=== PATIENT | female | born 1990 | race Caucasian/White ===

== ENCOUNTER 2021-06-28 08:00 | Emergency (ER) | payer OTHER, SELFPAY ==
--- NOTE | ~2021-06-28 | XR_ITS ---
EXAMINATION: XR CHEST CLINICAL INFORMATION: Chest pain COMPARISON: None TECHNIQUE: Frontal view of the chest was obtained. FINDINGS: No significant abnormality is noted involving the heart, lungs, mediastinum, bony thorax or soft tissues. XR/XR chest 1V IMPRESSION: Unremarkable chest examination.
[2021-06-28 08:11] VITALS: BP 131/91; PULSE 76; RESP 16; O2SAT 100; BMI 38.9
--- NOTE | 2021-06-28 08:25 | ECG_ITS ---
Test Reason : CHEST PAIN Blood Pressure : / mmHG Vent. Rate : 074 BPM Atrial Rate : 074 BPM P-R Int : 130 ms QRS Dur : 078 ms QT Int : 400 ms P-R-T Axes : 042 017 007 degrees QTc Int : 444 ms Normal sinus rhythm with sinus arrhythmia Normal ECG No previous ECGs available Referred By: Stacy Luevano Electronically Signed By:JENNIFER ZHAO MD
--- NOTE | 2021-06-28 08:46 | ED.CHESTPAIN ---
HPI - Chest Pain General Chief Complaint: Chest Pain Stated Complaint: CHEST PAIN ARM PAIN Time Seen by Provider: 06/28/21 08:19 Source: patient Mode of arrival: ambulatory History of Present Illness HPI narrative: 30-year-old female with past medical history of anxiety presenting to the ED complaining of sudden onset substernal chest pressure radiating to LUE starting at 6am while driving to [place]. Admits to associated left arm tingling and SOB during incident. Admits symptoms felt similar to prior anxiety attacks however radiation down arm was different. Denies fever, chills, cough, LE edema, calf pain, cigarette smoking, history blood clots, recent travel, nausea MD complaint: chest pain and chest discomfort Related Data Allergies Allergy/AdvReac Type Severity Reaction Status Date / Time doxycycline [DOXYCYCLINE] Allergy Unknown HIVES Unverified 04/18/20 18:00 Review of Systems Review of Systems: Constitutional: No Fever, No Fatigue, No Malaise ENT/Mouth: No Ear Pain, No sore throat, No Rhinorrhea Eyes: No Eye Pain, No Vision Changes Cardiovascular: + Chest Pain, + SOB, No Edema, No Palpitations Respiratory: No Cough, No Sputum, No Wheezing, No Dyspnea Gastrointestinal: No Nausea, No Vomiting, No Abdominal pain Genitourinary: No Dysuria, No Urinary Frequency, No Hematuria,No Flank Pain Musculoskeletal: No joint pain, No Myalgias, No Joint Swelling Skin: No Skin Lesions, No rash Neuro: No Weakness, No Headache Yes all other systems are reviewed and are negative PMFSH Past Medical History Attestation statement: The following information was validated with the patient. Medical History Anxiety Social History Social History Advance Directives: No Advance Directives Information Provided: No Patient : No Physical Exam Vital Signs: Vital Signs: Last Vital Signs Temp 97.4 F 06/28/21 12:02 Pulse 72 06/28/21 12:02 Resp 18 06/28/21 12:02 BP 128/80 06/28/21 12:02 Pulse Ox 99 06/28/21 12:02 Body Mass Index 38.9 Const: General: cooperative, healthy appearing and no acute distress Orientation/consciousness: patient oriented x3 Limitations: no limitations HENMT: Head: Yes normal to inspection Ears: hearing grossly normal bilaterally General nose exam: Normal external nose present Face and sinus: Yes normal facial exam Eyes: General: appearance normal, both eyes and all related structures EOM: EOMs intact bilaterally Neck: Neck: Yes normal visual inspection and Yes no meningeal signs Resp: Effort & Inspection: normal respiratory effort Auscultation: clear to auscultation bilaterally, no rales, no rhonchi and no wheezes Cardio: Rate: regular rate Heart sounds: S1 normal heart sound present and S2 normal heart sound present GI: Inspection: Yes normal to inspection Palpation (GI): Soft to palpation, nontender, no guarding and not rigid Skin: Rashes: no rashes Wounds: no wounds Neuro: General: patient oriented x3 and no meningeal signs Gait exam (Neuro): Normal gait present Extrem: General: Yes normal to inspection, Yes no pedal edema and Yes no calf tenderness Course Course Course Narrative: - labs unremarkable, initial troponin negative XR chest 1V IMPRESSION: Unremarkable chest examination. -1242--repeat troponin equivocal, DE unlikely, results discussed with patient including worrisome signs and symptoms and strict return precautions and you to follow-up with PCP/Cardiology as needed. Patient verbalized understanding feel safe for discharge home at this time MDM - Chest Pain MDM Narrative Medical decision making narrative: 30-year-old female with past medical history of anxiety presenting to the ED complaining of sudden onset substernal chest pressure radiating to LUE starting at 6am while driving to [place]. On exam vital signs stable, NAD/well-appearing, pain not reproducible, lungs CTA, no pedal edema/calf tenderness. Concern for ACS versus anxiety. Low concern for PE/pneumonia or viral syndrome/COVID-19 Plan: Labs, CXR, troponin x2 Medical Records Data Attestation: I reviewed the patient's medical records. Lab Data Attestation: I reviewed the patient's lab results. Result diagrams: 06/28/21 08:53 06/28/21 08:53 Labs: Lab Results 06/28/21 06/28/21 06/28/21 Range/Units 08:53 08:53 08:53 WBC 9.2 (4.8-10.8) X10*3/uL RBC 4.29 (4.20-5.50) X10*6/uL Hgb 12.6 (12.0-16.0) g/dl Hct 37.0 (37.0-47.0) % MCV 86.2 (80.0-98.0) fL MCH 29.4 (27.0-33.0) pg MCHC 34.1 (31.0-35.0) g/dl RDW 12.3 (11.0-16.0) % Plt Count 304 (160-400) X10*3/uL MPV 9.7 (9.4-12.3) fL Immature Gran % (Auto) 0.2 (0.0-0.4) % Neut % (Auto) 65.7 (45-73) % Lymph % (Auto) 21.5 (20-40) % [place] % (Auto) 5.6 (2-11) % Eos % (Auto) 6.3 H (0-4) % Baso % (Auto) 0.7 (0-2) % Lymph # (Auto) 2.0 (1.2-4.9) X10*3/uL [place] # (Auto) 0.5 (0.1-1.2) X10*3/uL Eos # (Auto) 0.6 H (0.0-0.4) X10*3/uL Baso # (Auto) 0.1 (0.0-0.2) X10*3/uL Abs Immat Gran (auto) 0.02 (0.00-0.03) X10*3/uL Absolute Neuts (auto) 6.0 (2.0-8.3) x10*3/uL Absolute Nucleated RBC 0.000 (0.0-0.012) X10*3/uL Nucleated RBC % (auto) 0.0 (0.0-0.2) /100WBC Sodium 141 (135-145) mmol/L Potassium 4.6 (3.3-5.1) mmol/L Chloride 108 (96-108) mmol/L Carbon Dioxide 25 (22-29) mmol/L Anion Gap 13 (12-20) BUN 10 (9-16) mg/dL Creatinine 0.80 (0.5-1.4) mg/dL Estim Creat Clear Calc 115.8 Estimated GFR > 60 Random Glucose 106 (60-115) mg/dL Calcium 9.3 (8.4-10.2) mg/dL Troponin I High Sens < 3.5 (<3.5-17.0) ng/L 06/28/21 Range/Units 11:55 WBC (4.8-10.8) X10*3/uL RBC (4.20-5.50) X10*6/uL Hgb (12.0-16.0) g/dl Hct (37.0-47.0) % MCV (80.0-98.0) fL MCH (27.0-33.0) pg MCHC (31.0-35.0) g/dl RDW (11.0-16.0) % Plt Count (160-400) X10*3/uL MPV (9.4-12.3) fL Immature Gran % (Auto) (0.0-0.4) % Neut % (Auto) (45-73) % Lymph % (Auto) (20-40) % [place] % (Auto) (2-11) % Eos % (Auto) (0-4) % Baso % (Auto) (0-2) % Lymph # (Auto) (1.2-4.9) X10*3/uL [place] # (Auto) (0.1-1.2) X10*3/uL Eos # (Auto) (0.0-0.4) X10*3/uL Baso # (Auto) (0.0-0.2) X10*3/uL Abs Immat Gran (auto) (0.00-0.03) X10*3/uL Absolute Neuts (auto) (2.0-8.3) x10*3/uL Absolute Nucleated RBC (0.0-0.012) X10*3/uL Nucleated RBC % (auto) (0.0-0.2) /100WBC Sodium (135-145) mmol/L Potassium (3.3-5.1) mmol/L Chloride (96-108) mmol/L Carbon Dioxide (22-29) mmol/L Anion Gap (12-20) BUN (9-16) mg/dL Creatinine (0.5-1.4) mg/dL Estim Creat Clear Calc Estimated GFR Random Glucose (60-115) mg/dL Calcium (8.4-10.2) mg/dL Troponin I High Sens < 3.5 (<3.5-17.0) ng/L ECG Data ECG #1: Attestation: I personally reviewed and interpreted this ECG as follows: ECG interpretation date: 06/28/21 ECG interpretation time: 08:24 Prior ECG tracings: not available for review Interpretation: EKG NSR rate 74, MN interval 130m QTC 444, No STEMI Discharge Plan Discharge Clinical Impression: Chest pain Qualifiers: Chest pain type: unspecified Qualified Code(s): R07.9 - Chest pain, unspecified Patient Disposition: Home, Self-Care Instructions: Chest Pain (ED) Additional Instructions: Your blood work was reassuring today in the emergency department Her chest x-ray was unremarkable Please follow-up with her primary care doctor Please follow up with Cardiology as needed If her symptoms persist or worsen, chest pain becomes more constant/unbearable your of shortness of breath, fever or chills he is return to the emergency department Referrals: Fernando Huynh MD [Primary Care Provider] - 2 days Boo Emmanuel MD [Physician] - 1 week (As needed)
[2021-06-28 08:58] LABS: Basophils Absolute Auto 0.1 X10*3/uL (0.0-0.2); Basophils Percent Auto 0.7 % (0-2); Eosinophils Absolute Auto 0.6 X10*3/uL (0.0-0.4); Eosinophils Percent Auto 6.3 % (0-4); Hemoglobin 12.6 g/dl (12.0-16.0); Imm Gran Abs Auto 0.02 X10*3/uL (0.00-0.03); Imm Gran Pct Auto 0.2 % (0.0-0.4); Lymphocytes Percent Auto 21.5 % (20-40); MANUAL DIFF FLAG NO; Mean Corpuscular HGB Conc 34.1 g/dl (31.0-35.0); Mean Corpuscular Hemoglobin 29.4 pg (27.0-33.0); Mean Corpuscular Volume 86.2 fL (80.0-98.0); Mean Platelet Volume 9.7 fL (9.4-12.3); Monocytes Absolute Auto 0.5 X10*3/uL (0.1-1.2); Monocytes Percent Auto 5.6 % (2-11); Neutrophils Percent Auto 65.7 % (45-73); Platelet Count 304 X10*3/uL (160-400); Red Blood Count 4.29 X10*6/uL (4.20-5.50); Red Cell Distribution Width 12.3 % (11.0-16.0); White Blood Count 9.2 X10*3/uL (4.8-10.8)
[2021-06-28 09:13] LABS: Anion Gap 13 (12-20); Blood Urea Nitrogen 10 mg/dL (9-16); Calcium 9.3 mg/dL (8.4-10.2); Carbon Dioxide 25 mmol/L (22-29); Chloride 108 mmol/L (96-108); Creatinine Clr Calc Pharmacy 115.8; Estimated Glomerular Filt Rate > 60; Glucose Random 106 mg/dL (60-115); Potassium 4.6 mmol/L (3.3-5.1); Sodium 141 mmol/L (135-145)
[2021-06-28 09:16] LABS: Troponin-I High Sensitivity < 3.5 ng/L (<3.5-17.0)
[2021-06-28 12:02] VITALS: BP 128/80; PULSE 72; RESP 18; TEMP 36.3; O2SAT 99
[2021-06-28 12:26] LABS: Troponin-I High Sensitivity < 3.5 ng/L (<3.5-17.0)
== END 2021-06-28 12:54 | disposition home or self-care (01) ==
PROVIDERS: Physician Assistant; Emergency Provider Emergency Medicine; PCP Family Medicine
DX: R07.9 Chest pain, unspecified (principal); F41.9 Anxiety disorder, unspecified
CPT/HCPCS: 36415; 71045; 80048; 84484; 85025; 93005; 99283; 99284

== ENCOUNTER 2022-06-25 23:14 | Emergency (ER) | payer OTHER, SELFPAY ==
[2022-06-25 23:15] VITALS: BP 138/88; PULSE 86; RESP 18; TEMP 36.8; O2SAT 99; BMI 40.8
[2022-06-25 23:30] VITALS: BP 137/80; PULSE 93; RESP 18; TEMP 37.2; O2SAT 98
--- OUTSIDE RECORDS SUMMARY | 2022-06-25 23:44 | XMS_ITS ---
:1990 Demographics Preferred Language Unknown Marital Status Unknown Protestant Affiliation Unknown Race Unknown Ethnic Group Unknown Author Organization [facility] Address [address] [place] [address] Care Team Providers Name Role Phone Ryan Victoria Unavailable Unavailable PROBLEMS Unknown Problems ALLERGIES No Information ENCOUNTERS Encounter Location Date Diagnosis Ryan Victoria MD, [address] [facility] [address] Oct, [place] [address] IMMUNIZATIONS No Known Immunizations SOCIAL HISTORY Never Assessed REASON FOR REFERRAL FUNCTIONAL STATUS PLAN OF CARE VITAL SIGNS MEDICATIONS Unknown Medications PROCEDURES No Known procedures RESULTS No Results REASON FOR VISIT
--- NOTE | 2022-06-25 23:49 | ECG_ITS ---
Test Reason : HEART PALP Blood Pressure : / mmHG Vent. Rate : 097 BPM Atrial Rate : 097 BPM P-R Int : 134 ms QRS Dur : 084 ms QT Int : 368 ms P-R-T Axes : 033 010 001 degrees QTc Int : 467 ms Normal sinus rhythm with sinus arrhythmia Nonspecific T wave abnormality Anterior leads Abnormal ECG When compared with ECG of 28-JUN-2021 08:42, Nonspecific T wave abnormality Anterior leads is new Referred By: Carl Molina Electronically Signed By:JENNIFER ZHAO MD
[2022-06-25 23:57] VITALS: BP 144/99; PULSE 95; RESP 16; TEMP 37.5; O2SAT 98
--- NOTE | 2022-06-26 00:12 | ED_ITS ---
HPI - General Adult General Chief complaint: General Medical Stated complaint: heart palp after new meds Time Seen by Provider: 06/25/22 23:29 Source: patient Mode of arrival: ambulatory History of Present Illness HPI narrative: 31-year-old female presenting complaining of palpitations. States palpitations started to become more frequent recently when she started taking her Wellbutrin again a few days ago, which she only takes in the wintertime. The patient states she has had palpitations previously, but not as constant or as severe as they have become. There is no exacerbating or relieving factors, except patient does note when she drinks too much caffeine she does get palpitations. She has not had any caffeine for several days if not weeks. Onset (ago): day(s) Radiation: non-radiation Severity: moderate Related Data Allergies Allergy/AdvReac Type Severity Reaction Status Date / Time doxycycline [DOXYCYCLINE] Allergy Unknown HIVES Unverified 04/18/20 18:00 Review of Systems Constitutional: Constitutional: Denies chills, Denies fever(s) and Denies headache(s) Eyes: Eyes: Denies blurry vision and Denies diplopia ENT: Denies vertigo, Denies dizziness and Denies headache(s) Cardiovascular: Cardiovascular: Denies chest pain, Denies pedal edema, Denies leg edema, Denies lightheadedness, Denies Loss of Consciousness, Reports palpitations and Denies dyspnea Respiratory: Respiratory: Reports no additional respiratory complaints, Denies cough and Denies dyspnea Gastrointestinal: Gastrointestinal: Denies abdominal pain, Denies nausea and D enies vomiting Genitourinary: Genitourinary: Denies hematuria and Denies difficulty voiding Musculoskeletal: Musculoskeletal: Reports no additional musculoskeletal complaints Neurologic: Reports system reviewed and no additional complaints, except as documented, Denies Abnormal speech present, Denies vertigo, Denies dizziness and Denies headache(s) Endocrine: Endocrine: Reports palpitations PMFSH Past Medical History Medical History Anxiety Social History Social History Alcohol intake: current Alcohol intake frequency: holidays/special occasions only Alcohol type: wine Smoked in Last 30 Days: No Use of substances other than those prescribed or required for medical reasons: Yes Substance Use Type: Marijuana Last Used Substance: Weeks (ago) Advance Directives: No Advance Directives Information Provided: No Physical Exam ED Vital Signs: Vital Signs - 24 hr 06/25/22 23:15 06/25/22 23:30 06/25/22 23:57 Temperature 98.3 F 98.9 F 99.5 F Pulse Rate 86 93 95 Respiratory Rate 18 18 16 Blood Pressure 138/88 137/80 144/99 H Pulse Oximetry 99 98 98 Oxygen Delivery Method Room Air Room Air Room Air BMI result Body Mass Index 40.8 Vital signs noted to be normal Const General: cooperative, alert, awake and Physically active Nutritional Appearance: overweight Orientation/consciousness: patient oriented x3 Limitations: no limitations HENMT Head: Yes normal to inspection, Yes normocephalic and Yes atraumatic Ears: external ears normal General nose exam: Normal external nose present Face and sinus: Yes normal facial exam Mouth: Normal oral and palatal mucosa present Eyes Sclerae: sclerae normal Corneas: corneas normal Neck Neck: Yes normal visual inspection and Yes full ROM Resp Effort & Inspection: normal respiratory effort, normal respiratory pattern, no audible wheezes and no cough Cardio Jugular venous distension: no JVD Rate: regular rate Rhythm: regular rhythm Heart sounds: no murmurs GI Inspection: Yes normal to inspection and No distended Back/Spine/Pelvis Cervical Spine: normal cervical lordosis and cervical ROM normal Skin General skin exam: no rashes or lesions noted, no jaundice and no pallor Neuro General: patient oriented x3 Cranial nerves: Yes CN's II-XII intact bilaterally Speech: No Abnormal speech present Gait exam (Neuro): Normal gait present Medical Decision Making [facility] Narrative Medical decision making narrative: 31-year-old female with palpitations. Started couple weeks ago when the patient started Wellbutrin. The patient's EKG was unremarkable, and the patient was observed in the emergency department for several hours. During the course of her stay, on the manager cardiac cath was noted that the patient had intermittent infrequent PVCs, which correlated with the patient's symptoms. The patient was reassured, and advised to stop Wellbutrin. She will call her psychiatrist tomorrow for alternative suggestions. The patient does not drink coffee, and was also advised against using any [id number] stimulants such as Sudafed or cough cold medications. Lab Data Result diagrams: 06/26/22 00:11 06/26/22 00:11 Labs: Lab Results 06/26/22 06/26/22 06/26/22 Range/Units 00:06 00:11 00:11 WBC 12.3 H (4.8-10.8) X10*3/uL RBC 4.31 (4.20-5.50) X10*6/uL Hgb 12.4 (12.0-16.0) g/dl Hct 36.3 L (37.0-47.0) % MCV 84.2 (80.0-98.0) fL MCH 28.8 (27.0-33.0) pg MCHC 34.2 (31.0-35.0) g/dl RDW 11.9 (11.0-16.0) % Plt Count 321 (160-400) X10*3/uL MPV 9.9 (9.4-12.3) fL Immature Gran % (Auto) 0.2 (0.0-0.4) % Neut % (Auto) 64.6 (45-73) % Lymph % (Auto) 26.2 (20-40) % [place] % (Auto) 6.2 (2-11) % Eos % (Auto) 2.3 (0-4) % Baso % (Auto) 0.5 (0-2) % Lymph # (Auto) 3.2 (1.2-4.9) X10*3/uL [place] # (Auto) 0.8 (0.1-1.2) X10*3/uL Eos # (Auto) 0.3 (0.0-0.4) X10*3/uL Baso # (Auto) 0.1 (0.0-0.2) X10*3/uL Abs Immat Gran (auto) 0.03 (0.00-0.03) X10*3/uL Absolute Neuts (auto) 8.0 (2.0-8.3) x10*3/uL Absolute Nucleated RBC 0.000 (0.0-0.012) X10*3/uL Nucleated RBC % (auto) 0.0 (0.0-0.2) /100WBC Sodium 140 (135-145) mmol/L Potassium 4.3 (3.3-5.1) mmol/L Chloride 108 (96-108) mmol/L Carbon Dioxide 18 L (22-29) mmol/L Anion Gap 18 (12-20) BUN 13 (9-16) mg/dL Creatinine 0.74 (0.5-1.4) mg/dL Estim Creat Clear Calc 132.1 Estimated GFR > 60 Random Glucose 110 (60-115) mg/dL Calcium 9.5 (8.4-10.2) mg/dL Troponin I High Sens (<3.5-17.0) ng/L COVID-19 (GWENDOLYN) Negative (Negative) COVID-19 Clin Com See Note 06/26/22 Range/Units 00:11 WBC (4.8-10.8) X10*3/uL RBC (4.20-5.50) X10*6/uL Hgb (12.0-16.0) g/dl Hct (37.0-47.0) % MCV (80.0-98.0) fL MCH (27.0-33.0) pg MCHC (31.0-35.0) g/dl RDW (11.0-16.0) % Plt Count (160-400) X10*3/uL MPV (9.4-12.3) fL Immature Gran % (Auto) (0.0-0.4) % Neut % (Auto) (45-73) % Lymph % (Auto) (20-40) % [place] % (Auto) (2-11) % Eos % (Auto) (0-4) % Baso % (Auto) (0-2) % Lymph # (Auto) (1.2-4.9) X10*3/uL [place] # (Auto) (0.1-1.2) X10*3/uL Eos # (Auto) (0.0-0.4) X10*3/uL Baso # (Auto) (0.0-0.2) X10*3/uL Abs Immat Gran (auto) (0.00-0.03) X10*3/uL Absolute Neuts (auto) (2.0-8.3) x10*3/uL Absolute Nucleated RBC (0.0-0.012) X10*3/uL Nucleated RBC % (auto) (0.0-0.2) /100WBC Sodium (135-145) mmol/L Potassium (3.3-5.1) mmol/L Chloride (96-108) mmol/L Carbon Dioxide (22-29) mmol/L Anion Gap (12-20) BUN (9-16) mg/dL Creatinine (0.5-1.4) mg/dL Estim Creat Clear Calc Estimated GFR Random Glucose (60-115) mg/dL Calcium (8.4-10.2) mg/dL Troponin I High Sens < 3.5 (<3.5-17.0) ng/L COVID-19 (GWENDOLYN) (Negative) COVID-19 Clin Com ECG Data Attestation: I personally reviewed and interpreted this ECG as follows: Prior ECG tracings: not available for review Interpretation: Normal sinus rhythm with a normal rate, Discharge Plan Discharge Clinical Impression: Contraction, premature, ventricular Patient Disposition: Home, Self-Care Instructions: Premature Ventricular Contractions (ED)
[2022-06-26 00:15] LABS: MANUAL DIFF FLAG NO
[2022-06-26 00:16] LABS: Basophils Absolute Auto 0.1 X10*3/uL (0.0-0.2); Basophils Percent Auto 0.5 % (0-2); Eosinophils Absolute Auto 0.3 X10*3/uL (0.0-0.4); Eosinophils Percent Auto 2.3 % (0-4); Hematocrit 36.3 % (37.0-47.0); Hemoglobin 12.4 g/dl (12.0-16.0); Imm Gran Abs Auto 0.03 X10*3/uL (0.00-0.03); Imm Gran Pct Auto 0.2 % (0.0-0.4); Lymphocytes Absolute Auto 3.2 X10*3/uL (1.2-4.9); Lymphocytes Percent Auto 26.2 % (20-40); Mean Corpuscular HGB Conc 34.2 g/dl (31.0-35.0); Mean Corpuscular Hemoglobin 28.8 pg (27.0-33.0); Mean Corpuscular Volume 84.2 fL (80.0-98.0); Mean Platelet Volume 9.9 fL (9.4-12.3); Monocytes Absolute Auto 0.8 X10*3/uL (0.1-1.2); Monocytes Percent Auto 6.2 % (2-11); Neutrophils Percent Auto 64.6 % (45-73); Platelet Count 321 X10*3/uL (160-400); Red Blood Count 4.31 X10*6/uL (4.20-5.50); Red Cell Distribution Width 11.9 % (11.0-16.0); White Blood Count 12.3 X10*3/uL (4.8-10.8)
[2022-06-26 00:33] LABS: COVID-19 Test Negative (Negative)
[2022-06-26 00:35] LABS: Anion Gap 18 (12-20); Blood Urea Nitrogen 13 mg/dL (9-16); Calcium 9.5 mg/dL (8.4-10.2); Carbon Dioxide 18 mmol/L (22-29); Chloride 108 mmol/L (96-108); Creatinine Clr Calc Pharmacy 132.1; Estimated Glomerular Filt Rate > 60; Glucose Random 110 mg/dL (60-115); Potassium 4.3 mmol/L (3.3-5.1); Sodium 140 mmol/L (135-145)
[2022-06-26 00:40] LABS: Troponin-I High Sensitivity < 3.5 ng/L (<3.5-17.0)
[2022-06-26 01:55] VITALS: BP 140/89; PULSE 91; RESP 16; TEMP 37.2; O2SAT 92
== END 2022-06-26 02:00 | disposition home or self-care (01) ==
PROVIDERS: Emergency Provider Emergency Medicine
DX: I49.3 Ventricular premature depolarization (principal); Z20.822 Contact with and (suspected) exposure to COVID-19; F12.90 Cannabis use, unspecified, uncomplicated; F41.9 Anxiety disorder, unspecified; Z79.899 Other long term (current) drug therapy
CPT/HCPCS: 80048; 84484; 85025; 87635; 93005; 99284

== ENCOUNTER 2023-03-11 13:42 | Outpatient (REF) | payer OTHER, SELFPAY | END 2023-03-11 13:43 | disposition home or self-care (01) | LOC: HO.CT 13:42 | PROVIDERS: Visit Provider Nurse Practitioner | DX: Z13.89 Encounter for screening for other disorder (principal) ==

== ENCOUNTER 2023-03-12 11:10 | Outpatient (REF) | payer OTHER, SELFPAY ==
--- NOTE | ~2023-03-12 | CT_ITS ---
EXAMINATION: CT ABDOMEN WITHOUT AND WITH CONTRAST CLINICAL INFORMATION: Abdominal pain COMPARISON: None available. TECHNIQUE: Contiguous axial thin section helical images of the abdomen were performed before and after the administration of oral contrast and 85 mL of Omnipaque 350 intravenous contrast. Arterial and portal phase imaging was performed. The data set was reformatted in the coronal and sagittal planes and reviewed on an independent workstation. This CT examination was performed using dose optimization techniques as appropriate, variously including the following: *Automated exposure control *Adjustment of mA and/or kV according to patient size (this includes techniques or standardized protocols for targeted exams where dose is matched to indication/reason for exam; i.e. extremities or head) *Use of iterative reconstruction technique DLP: 1226 mGy-cm FINDINGS: LUNG BASES: The lung bases are clear. LIVER, GALLBLADDER, AND BILIARY TREE: The liver is low in attenuation suggestive of fatty infiltration. There is a 2 cm lesion in the lateral segment of the left lobe of the liver. This is slightly high signal with respect the liver precontrast. This demonstrates early arterial phase enhancement. This remains enhanced on portal phase imaging matching that of blood pool. This may represent a flash filling hemangioma. Differential would include adenoma, FNH and in the right clinical setting hypervascular metastasis. No other liver lesion. The gallbladder is normal. There is no biliary duct dilatation.. PANCREAS: Normal SPLEEN: Normal ADRENAL GLANDS AND KIDNEYS: Normal BOWEL LOOPS: Mild diverticulosis of the colon. Small and large bowel is otherwise normal. LYMPH NODES: Normal VASCULAR: Normal BONES: Normal CT/CT abdomen wo/w IV con IMPRESSION: Fatty liver. 2 cm hypervascular lesion in the left lobe of the liver. Differential would include flash filling hemangioma, adenoma, and FNH. Hypervascular metastasis cannot be excluded in the right clinical setting. Clinically correlate with oral contraceptive use. This could be further evaluated with follow-up 6 month liver MRI with contrast. Fleischner guidelines were followed.
[2023-03-12] MEDS: iohexoL 350 MG/ML 75 ML INFUS..BTL 85 ML IV (12:17)
== END 2023-03-12 11:11 | disposition home or self-care (01) ==
LOC: HO.CT 11:10
PROVIDERS: Visit Provider Nurse Practitioner
DX: R10.9 Unspecified abdominal pain (principal)
CPT/HCPCS: 74170; Q9967

== ENCOUNTER 2023-03-27 16:54 | Emergency (ER) | payer OTHER, SELFPAY ==
--- NOTE | ~2023-03-27 | US_ITS ---
EXAMINATION: US PELVIS CLINICAL INFORMATION: Left-sided pelvic pain COMPARISON: CT scan 03/12/2023 TECHNIQUE: Ultrasound of the pelvis is performed using both transabdominal and transvaginal transducers along with Doppler. Transvaginal imaging is performed due to inadequate visualization transabdominally. FINDINGS: Uterus: The uterus is anteverted and measures 8.1 x 2.6 x 2.6 cm. The double wall endometrial thickness is 0.8 mm. The uterus is smooth in contour and has normal myometrial echogenicity. No visible fibroid. Adnexa: Both ovaries are visualized. There is normal color flow to the adnexa. There is no ovarian torsion. There is no pelvic ascites or fluid collection. Right ovary measures 9 mL in volume and left ovary measures 6 mL in volume with normal arterial and venous flow seen. US/US pelvic and transvaginal IMPRESSION: No evidence of any active torsion. No focal lesion to explain patient's symptoms.
--- NOTE | ~2023-03-27 | US_ITS ---
EXAMINATION: US PELVIS CLINICAL INFORMATION: Left-sided pelvic pain COMPARISON: CT scan 03/12/2023 TECHNIQUE: Ultrasound of the pelvis is performed using both transabdominal and transvaginal transducers along with Doppler. Transvaginal imaging is performed due to inadequate visualization transabdominally. FINDINGS: Uterus: The uterus is anteverted and measures 8.1 x 2.6 x 2.6 cm. The double wall endometrial thickness is 0.8 mm. The uterus is smooth in contour and has normal myometrial echogenicity. No visible fibroid. Adnexa: Both ovaries are visualized. There is normal color flow to the adnexa. There is no ovarian torsion. There is no pelvic ascites or fluid collection. Right ovary measures 9 mL in volume and left ovary measures 6 mL in volume with normal arterial and venous flow seen. US/US pelvic ovarian doppler IMPRESSION: No evidence of any active torsion. No focal lesion to explain patient's symptoms.
[2023-03-27 16:57] VITALS: BP 136/90; PULSE 83; RESP 19; TEMP 37.1; O2SAT 98; BMI 42.0
--- NOTE | 2023-03-27 16:57 | ED.BACK ---
HPI - Back Pain/Injury General Chief Complaint: Back Pain/Injury Stated Complaint: pelvic/back pain Time Seen by Provider: 03/27/23 18:27 Source: patient and family Mode of arrival: ambulatory Limitations: no limitations History of Present Illness HPI Narrative: 32-year-old female previously healthy here with complaints of 4 days of left-sided back pain with radiation to the left groin with no complaints of associated urinary symptoms, vomiting, diarrhea, fevers, chills, vaginal discharge. 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 Related Data Previous Rx's Medication Instructions Recorded cyclobenzaprine 10 mg tablet 10 mg PO Q8H PRN muscle spasm #15 03/27/23 tabs ibuprofen 600 mg tablet 600 mg PO Q8H PRN pain #20 tabs 03/27/23 lidocaine 5 % topical patch 1 patch topical DAILY #15 ea 03/27/23 (Lidoderm) Allergies Allergy/AdvReac Type Severity Reaction Status Date / Time doxycycline [DOXYCYCLINE] Allergy Unknown HIVES Verified 03/27/23 17:02 Review of Systems Review of Systems: Yes all other systems are reviewed and are negative Constitutional: Constitutional: Reports no additional constitutional complaints, Denies body ache(s), Denies chills, Denies fever(s), Denies headache(s) and Denies weakness Eyes: Eyes: Reports no additional eye complaints and Denies change in vision ENT: Reports system reviewed and no additional complaints, except as documented, Denies dizziness, Denies headache(s), Denies nasal congestion, Denies nasal discharge and Denies neck pain Cardiovascular: Cardiovascular: Reports no additional cardiovascular complaints, Denies chest pain, Denies leg edema and Denies dyspnea Respiratory: Respiratory: Reports no additional respiratory complaints, Denies cough and Denies dyspnea Gastrointestinal: Gastrointestinal: Reports no additional gastrointestinal complaints, Denies abdominal pain, Denies diarrhea, Denies nausea and Denies vomiting Genitourinary: Genitourinary: Reports no additional female genitourinary complaints, Reports pelvic pain, Denies urinary incontinence and Denies vaginal discharge Musculoskeletal: Musculoskeletal: Reports no additional musculoskeletal complaints, Reports back pain, Denies arthralgias, Denies joint swelling, Denies neck pain, Denies numbness and Denies tingling Integumentary/Breasts: Skin/Breast: Reports system reviewed and no additional complaints, except as docu and Denies rash Neurologic: Reports system reviewed and no additional complaints, except as documented, Denies Abnormal speech present, Denies dizziness, Denies headache(s), Denies numbness, Denies tingling and Denies weakness [facility] Past Medical History Attestation statement: The following information was validated with the patient. Source: old records reviewed and nursing notes reviewed Medical History Anxiety Social History Social History Alcohol intake: current Alcohol intake frequency: holidays/special occasions only Alcohol type: wine Smoked in Last 30 Days: No Use of substances other than those prescribed or required for medical reasons: No Substance Use Type: Marijuana Advance Directives: No Advance Directives Information Provided: No Patient : No Physical Exam Vital Signs: Vital Signs: Last Vital Signs Temp 98.8 F 03/27/23 16:57 Pulse 83 03/27/23 16:57 Resp 19 03/27/23 16:57 BP 136/90 H 03/27/23 16:57 Pulse Ox 98 03/27/23 16:57 O2 Del Method Room Air 03/27/23 16:57 BMI result Body Mass Index 42.0 Const: General: cooperative, healthy appearing, comfortable and no acute distress Orientation/consciousness: patient oriented x3 Limitations: no limitations HEENT: Head: Yes normal to inspection Ears: hearing grossly normal bilaterally General nose exam: Normal external nose present Face and sinus: Yes normal facial exam Mouth: Normal oral and palatal mucosa present Throat: Yes posterior oropharynx normal Eyes: General: appearance normal, both eyes and all related structures Pupils: Equal, round and reactive pupils present Neck: Neck: Yes normal visual inspection Chest: Chest palpation & inspection: normal inspection of the chest Resp: Effort & Inspection: normal respiratory effort Auscultation: clear to auscultation bilaterally Cardio: Rate: regular rate Rhythm: regular rhythm Peripheral pulses: Peripheral pulses 2+ throughout GI: Inspection: Yes normal to inspection Palpation (GI): Soft to palpation and nontender Auscultation: normal bowel sounds : 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 Normal straight leg raise. Thoracic/Lumbar Spine: thoracic and lumbar spine normal to inspection Skin: General skin exam: no rashes or lesions noted Neuro: General: patient oriented x3, moves all extremities, no focal motor deficits and normal sensation to monofilament Cranial nerves: Yes Equal, round and reactive pupils present Cognition (Neuro): normal cognition Speech: No Abnormal speech present Gait exam (Neuro): Normal gait present Motor exam (neuro): 5/5 motor strength present throughout Sensory Exam: Normal double simultaneous stimulation for sensation Extrem: General: Yes normal to inspection Course Course Course Narrative: This is an RME: Additional HPI, ROS, PE not included below will be deferred to primary provider. Patient is a 32-year-old female presents to the emergency department for evaluation of left lower back pain radiating into the left groin states it feels like nerve pain . Onset 4 days ago. denies symptoms, fevers, chills, nausea, vomiting. LMP 2 weeks ago. Unrelieved with ibuprofen/ acetaminophen. Plan: placed in [facility] pending bed availability for pain management, Urinalysis, hCG Reevaluation(s) Reevaluation #1: Labs are unremarkable. UA and urine are negative. Pelvic ultrasound shows no acute finding. Pelvic exam was unremarkable with no evidence of PID. This was reviewed with the patient. ? Lumbar radiculopathy versus sacroiliitis. Patient be discharged home with NSAID, muscle relaxants with recommendations for supportive care at home. Reviewed worrisome signs and symptoms of when to return to the emergency room. Comfortable plan for discharge home. Medications Administered Discontinued Medications Generic Name Dose Route Start Last Admin Trade Name Freq PRN Reason Stop Dose Admin Ibuprofen 600 mg 03/27/23 20:54 03/27/23 20:59 Ibuprofen 600 Mg Tablet PO 03/27/23 20:55 600 mg ONCE ONE Administration Medical Decision Making Medical Decision Making [facility] Narrative: 32-year-old female here with complaints of 4 days of left lower back pain with radiation to the left pelvic area with no other associated symptoms. On exam there is pain on compression over the left SI joint. This does not seem to be intact denies with any straight leg raise or movement. There is no focal abdominal pain on exam. Will obtain labs, UA, pelvic ultrasound, perform pelvic exam Differential Diagnosis Differential Diagnoses: The differential diagnosis associated with the presentation includes Low concern for STI, TOA, ovarian torsion, PID, malignancy, renal colic, pyelonephritis Consider ovarian cyst, urinary tract infection, lumbar radiculopathy, sacroiliitis Lab Data MDM Lab Attestation statement: I reviewed the patient's lab results. 03/27/23 19:03 03/27/23 19:03 Labs: Lab Results 03/27/23 03/27/23 03/27/23 Range/Units 18:18 18:18 19:03 WBC 10.8 (4.8-10.8) X10*3/uL RBC 4.41 (4.20-5.50) X10*6/uL Hgb 12.5 (12.0-16.0) g/dl Hct 37.5 (37.0-47.0) % MCV 85.0 (80.0-98.0) fL MCH 28.3 (27.0-33.0) pg MCHC 33.3 (31.0-35.0) g/dl RDW 11.9 (11.0-16.0) % Plt Count 306 (160-400) X10*3/uL MPV 10.3 (9.4-12.3) fL Immature Gran % (Auto) 0.2 (0.0-0.4) % Neut % (Auto) 69.1 (45-73) % Lymph % (Auto) 21.7 (20-40) % [place] % (Auto) 5.3 (2-11) % Eos % (Auto) 3.1 (0-4) % Baso % (Auto) 0.6 (0-2) % Lymph # (Auto) 2.3 (1.2-4.9) X10*3/uL [place] # (Auto) 0.6 (0.1-1.2) X10*3/uL Eos # (Auto) 0.3 (0.0-0.4) X10*3/uL Baso # (Auto) 0.1 (0.0-0.2) X10*3/uL Abs Immat Gran (auto) 0.02 (0.00-0.03) X10*3/uL Absolute Neuts (auto) 7.5 (2.0-8.3) x10*3/uL Absolute Nucleated RBC 0.000 (0.0-0.012) X10*3/uL Nucleated RBC % (auto) 0.0 (0.0-0.2) /100WBC Sodium (135-145) mmol/L Potassium (3.3-5.1) mmol/L Chloride (96-108) mmol/L Carbon Dioxide (22-29) mmol/L Anion Gap (12-20) BUN (9-16) mg/dL Creatinine (0.5-1.4) mg/dL Estim Creat Clear Calc Estimated GFR Random Glucose (60-115) mg/dL Calcium (8.4-10.2) mg/dL Urine Color Yellow Urine Appearance Clear Urine pH 6.0 (5.0-9.0) Ur Specific [place] <= 1.005 (1.005-1.025) Urine Protein Negative (Neg-Trace) mg/dL Urine Glucose (UA) Negative (Negative) mg/dL Urine Ketones Negative (Negative) mg/dL Urine Blood Negative (Negative) Urine Nitrite Negative (Negative) Ur Leukocyte Esterase Negative (Negative) Urine Test NEGATIVE (NEGATIVE) 03/27/23 Range/Units 19:03 WBC (4.8-10.8) X10*3/uL RBC (4.20-5.50) X10*6/uL Hgb (12.0-16.0) g/dl Hct (37.0-47.0) % MCV (80.0-98.0) fL MCH (27.0-33.0) pg MCHC (31.0-35.0) g/dl RDW (11.0-16.0) % Plt Count (160-400) X10*3/uL MPV (9.4-12.3) fL Immature Gran % (Auto) (0.0-0.4) % Neut % (Auto) (45-73) % Lymph % (Auto) (20-40) % [place] % (Auto) (2-11) % Eos % (Auto) (0-4) % Baso % (Auto) (0-2) % Lymph # (Auto) (1.2-4.9) X10*3/uL [place] # (Auto) (0.1-1.2) X10*3/uL Eos # (Auto) (0.0-0.4) X10*3/uL Baso # (Auto) (0.0-0.2) X10*3/uL Abs Immat Gran (auto) (0.00-0.03) X10*3/uL Absolute Neuts (auto) (2.0-8.3) x10*3/uL Absolute Nucleated RBC (0.0-0.012) X10*3/uL Nucleated RBC % (auto) (0.0-0.2) /100WBC Sodium 141 (135-145) mmol/L Potassium 4.0 (3.3-5.1) mmol/L Chloride 107 (96-108) mmol/L Carbon Dioxide 24 (22-29) mmol/L Anion Gap 14 (12-20) BUN 8 L (9-16) mg/dL Creatinine 0.74 (0.5-1.4) mg/dL Estim Creat Clear Calc 133.1 Estimated GFR > 60 Random Glucose 83 (60-115) mg/dL Calcium 9.2 (8.4-10.2) mg/dL Urine Color Urine Appearance Urine pH (5.0-9.0) Ur Specific [place] (1.005-1.025) Urine Protein (Neg-Trace) mg/dL Urine Glucose (UA) (Negative) mg/dL Urine Ketones (Negative) mg/dL Urine Blood (Negative) Urine Nitrite (Negative) Ur Leukocyte Esterase (Negative) Urine Test (NEGATIVE) Independent Interpretation I performed an independent interpretation of an: Ultrasound Interpretation: Indepedentelty reviewed the ultrasound agree with radiology report Radiology Impression Discussion of test interpretation with radiology: I have reviewed the radiologist's reading. Radiologist Impression: [address] [address] Ultrasound Report Signed Patient: Urmila Ortega MR#: [id number] : 1990 Acct:[id number] Age/Sex: 32 / F ADM Date: 03/27/23 Loc: .ED Attending Dr: Ordering Physician: Kellen Dudley NP Date of Service: 03/27/23 Procedure(s): US pelvic and transvaginal Accession Number(s): [id number] cc: Kellen Dudley NP~ EXAMINATION:? US PELVIS CLINICAL INFORMATION:? Left-sided pelvic pain COMPARISON: CT scan 03/12/2023 TECHNIQUE: Ultrasound of the pelvis is performed using both transabdominal and transvaginal transducers along with Doppler. Transvaginal imaging is performed due to inadequate visualization transabdominally. FINDINGS: Uterus: The uterus is anteverted and measures 8.1 x 2.6 x 2.6 cm. The double wall endometrial thickness is 0.8 mm.? The uterus is smooth in contour and has normal myometrial echogenicity. ? No visible fibroid. Adnexa: Both ovaries are visualized. There is normal color flow to the adnexa. There is no ovarian torsion.? There is no pelvic ascites or fluid collection. Right ovary measures 9 mL in volume and left ovary measures 6 mL in volume with normal arterial and venous flow seen. US/US pelvic and transvaginal IMPRESSION: No evidence of any active torsion. No focal lesion to explain patient's symptoms. Independent Historian Clinical information obtained from an independent historian. History obtained from or confirmed by: Spouse Discharge Plan Discharge Clinical Impression: Lumbar radiculopathy, Sacroiliitis Patient Disposition: Home, Self-Care Instructions: Lumbar Radiculopathy (ED), Sacroiliitis (ED) Additional Instructions: Your lab work is reassuring Your urine testing shows no signs of infection Your pelvic ultrasound is normal We did send testing for common vaginal infections and these results take 1-2 days to come back. We will call you if they are positive in you require any additional treatment Prescriptions: New ibuprofen 600 mg tablet 600 mg PO Q8H PRN (Reason: pain) Qty: 20 0RF cyclobenzaprine 10 mg tablet 10 mg PO Q8H PRN (Reason: muscle spasm) Qty: 15 0RF lidocaine [Lidoderm] 5 % adhesive patch,medicated 1 patch topical DAILY Qty: 15 0RF Rx Instructions: leave on most painful area for up to 12 hrs Referrals: Johana Flores PA [Primary Care Provider] - 1 week Stand Alone Forms: Work/School Release Interventions: ED Discharge Assessment Last Done: 03/27/23 21:37 Discharge Date/Time: 03/27/23 21:37
--- NOTE | 2023-03-27 17:17 | PC.NURSE ---
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 She stated that she has been anxious about her pain due to this CT scan finding
[2023-03-27 18:42] LABS: Appearance Urine Clear; Color Urine Yellow; Glucose Urine UA Negative (Negative); Leukocyte Esterase Urine Negative (Negative); Nitrite Urine Negative (Negative); Specific Gravity - Urine <= 1.005 (1.005-1.025); Urine Blood Negative (Negative); Urine Ketones Negative (Negative); Urine Protein Negative (Neg-Trace)
[2023-03-27 18:49] LABS: UPreg QC Valid YES; Urine Pregnancy NEGATIVE (NEGATIVE)
[2023-03-27 19:08] LABS: MANUAL DIFF FLAG NO
[2023-03-27 19:23] LABS: Anion Gap 14 (12-20); Blood Urea Nitrogen 8 mg/dL (9-16); Calcium 9.2 mg/dL (8.4-10.2); Carbon Dioxide 24 mmol/L (22-29); Chloride 107 mmol/L (96-108); Creatinine Clr Calc Pharmacy 133.1; Estimated Glomerular Filt Rate > 60; Glucose Random 83 mg/dL (60-115); Sodium 141 mmol/L (135-145)
[2023-03-27 19:35] LABS: Basophils Absolute Auto 0.1 X10*3/uL (0.0-0.2); Basophils Percent Auto 0.6 % (0-2); Eosinophils Absolute Auto 0.3 X10*3/uL (0.0-0.4); Eosinophils Percent Auto 3.1 % (0-4); Hematocrit 37.5 % (37.0-47.0); Hemoglobin 12.5 g/dl (12.0-16.0); Imm Gran Abs Auto 0.02 X10*3/uL (0.00-0.03); Imm Gran Pct Auto 0.2 % (0.0-0.4); Lymphocytes Absolute Auto 2.3 X10*3/uL (1.2-4.9); Lymphocytes Percent Auto 21.7 % (20-40); Mean Corpuscular HGB Conc 33.3 g/dl (31.0-35.0); Mean Corpuscular Hemoglobin 28.3 pg (27.0-33.0); Mean Platelet Volume 10.3 fL (9.4-12.3); Monocytes Absolute Auto 0.6 X10*3/uL (0.1-1.2); Monocytes Percent Auto 5.3 % (2-11); Neutrophils Absolute Auto 7.5 x10*3/uL (2.0-8.3); Neutrophils Percent Auto 69.1 % (45-73); Platelet Count 306 X10*3/uL (160-400); Red Blood Count 4.41 X10*6/uL (4.20-5.50); Red Cell Distribution Width 11.9 % (11.0-16.0); White Blood Count 10.8 X10*3/uL (4.8-10.8)
[2023-03-27] MEDS: Ibuprofen 600 MG TABLET PO (20:59)
[2023-03-28 02:20] LABS: CT PCR NOT DETECTED (Not Detect.); NG PCR NOT DETECTED (Not Detect.)
[2023-03-28 13:32] LABS: BV Int Neg Control Negative (Negative); BV Int Pos Control Positive (Positive)
== END 2023-03-27 21:37 | disposition home or self-care (01) ==
PROVIDERS: Nurse Practitioner Family; Emergency Provider Emergency Medicine; PCP Physician Assistant
DX: M54.16 Radiculopathy, lumbar region (principal); M46.1 Sacroiliitis, not elsewhere classified; R10.2 Pelvic and perineal pain
CPT/HCPCS: 0353U; 36415; 76830; 76856; 80048; 81003; 81025; 85025; 87480; 87510; 87660; 93975; 99284

== ENCOUNTER 2023-10-30 23:43 | Emergency (ER) | payer OTHER, SELFPAY ==
--- NOTE | 2023-10-30 | ECG_ITS ---
Test Reason : CHEST PAIN Blood Pressure : / mmHG Vent. Rate : 102 BPM Atrial Rate : 102 BPM P-R Int : 120 ms QRS Dur : 072 ms QT Int : 352 ms P-R-T Axes : 048 014 007 degrees QTc Int : 458 ms Sinus tachycardia Nonspecific T wave abnormality Abnormal ECG When compared with ECG of 25-JUN-2022 23:57, Nonspecific T wave abnormality now evident in Anterior leads Referred By: Generic ED Physician Electronically Signed By:Georgi Rendon
--- NOTE | ~2023-10-30 | XR_ITS ---
EXAMINATION: XR CHEST CLINICAL INFORMATION: Pain COMPARISON: 06/28/2021 TECHNIQUE: Frontal view of the chest was obtained. FINDINGS: The lungs are clear with no focal consolidation. No evidence of pneumothorax, pulmonary edema, or pleural effusions. The cardiomediastinal silhouette is unremarkable. No acute osseous findings. XR/XR chest 1V IMPRESSION: No acute cardiopulmonary findings.
[2023-10-30 23:50] VITALS: BP 144/95; PULSE 86; RESP 16; TEMP 37; O2SAT 98; BMI 40.7
[2023-10-31 00:20] LABS: MANUAL DIFF FLAG NO
[2023-10-31 00:21] LABS: Basophils Absolute Auto 0.1 X10*3/uL (0.0-0.2); Basophils Percent Auto 0.5 % (0-2); Eosinophils Absolute Auto 0.2 X10*3/uL (0.0-0.4); Eosinophils Percent Auto 1.7 % (0-4); Hematocrit 36.3 % (37.0-47.0); Hemoglobin 12.5 g/dl (12.0-16.0); Imm Gran Abs Auto 0.05 X10*3/uL (0.00-0.03); Imm Gran Pct Auto 0.4 % (0.0-0.4); Lymphocytes Absolute Auto 3.2 X10*3/uL (1.2-4.9); Lymphocytes Percent Auto 24.4 % (20-40); Mean Corpuscular HGB Conc 34.4 g/dl (31.0-35.0); Mean Corpuscular Hemoglobin 28.7 pg (27.0-33.0); Mean Corpuscular Volume 83.3 fL (80.0-98.0); Monocytes Absolute Auto 0.8 X10*3/uL (0.1-1.2); Monocytes Percent Auto 6.2 % (2-11); Neutrophils Absolute Auto 8.9 x10*3/uL (2.0-8.3); Neutrophils Percent Auto 66.8 % (45-73); Platelet Count 320 X10*3/uL (160-400); Red Blood Count 4.36 X10*6/uL (4.20-5.50); Red Cell Distribution Width 12.1 % (11.0-16.0); White Blood Count 13.3 X10*3/uL (4.8-10.8)
--- NOTE | 2023-10-31 00:23 | ED_ITS ---
HPI - Chest Pain General Chief Complaint: Chest Pain Stated Complaint: chest pain Time Seen by Provider: 10/31/23 00:18 Source: patient Mode of arrival: ambulatory Limitations: no limitations History of Present Illness HPI narrative: 33 yo female with PMH of panic attacks, HLD here with c/o 2 days of intermittent panic attacks along with recent sudden unexpected loss of her father from cardiac arrest. She notes she has been having some IBS symptoms of gas - belching and flatus along with stools unsure if it related to her new atorvastatin. She also then gets chest pain at times substernal radiates to the R arm feels a panic and the it worsens. She is not on OCPs, has not traveled. No other PMH. She herself has no known cardiac disease. MD complaint: chest pain Onset (ago): day(s) (2) Timing of current episode: episodic Prior episodes: Yes Onset: during rest Pain location: substernal Pain radiation: right arm Severity: moderate Quality: tightness and heaviness Relieving factors: nothing Exacerbating factors: stress Context: other (recent sudden loss of her father) Associated symptoms: dyspnea and sense of impending doom Treatment prior to arrival: other (xanax, tums) Related Data Previous Rx's Medication Instructions Recorded cyclobenzaprine 10 mg tablet 10 mg PO Q8H PRN muscle spasm #15 03/27/23 tabs ibuprofen 600 mg tablet 600 mg PO Q8H PRN pain #20 tabs 03/27/23 lidocaine 5 % topical patch 1 patch topical DAILY #15 ea 03/27/23 (Lidoderm) Allergies Allergy/AdvReac Type Severity Reaction Status Date / Time doxycycline [DOXYCYCLINE] Allergy Unknown HIVES Verified 03/27/23 17:02 Review of Systems 2 Review of Systems: Constitutional : No Weight loss, No Fever, No Chills ENT/Mouth : No sore throat, No Rhinorrhea Eyes: No Eye Pain, No Swelling Cardiovascular : pos Chest Pain, pos SOB, no Dyspnea on Exertion, No Orthopnea, No Edema, No Palpitations Respiratory : No Cough, No Sputum Gastrointestinal : no Nausea, No Vomiting, pos Diarrhea, No abdominal Pain, No Hematochezia, No Melena Genitourinary : No Dysuria, No Urinary Frequency Musculoskeletal : No joint pain, No Myalgias, No Joint Swelling Skin : No Skin Lesions, No rash Neuro : No Weakness, No Numbness, No Dizziness, No Headache Psych : pos Anxiety/Panic, No Depression All other systems reviewed and are negative [facility] Past Medical History Attestation statement: The following information was validated with the patient. Source: old records reviewed Medical History Hyperlipidemia Anxiety Social History Social History (Updated 10/31/23 @ 00:41 by Geovanna Baez DO) Alcohol intake: current Alcohol intake frequency: holidays/special occasions only Alcohol type: wine Patient Tobacco Use Status: Never used Tobacco Substance Use Type: Marijuana Advance Directives: No Advance Directives Information Provided: No Physical Exam 2 Vital Signs: Vital Signs: Last Vital Signs Temp 98.6 F 10/30/23 23:50 Pulse 86 10/30/23 23:50 Resp 16 10/30/23 23:50 BP 144/95 H 10/30/23 23:50 Pulse Ox 98 10/30/23 23:50 O2 Del Method Room Air 10/30/23 23:50 BMI result Body Mass Index 40.7 Appearance: Alert. Oriented X3. No acute distress. anxious and tearful Eyes: Pupils equal, round and reactive to light. ENT: Pharynx normal. Neck: Normal inspection. Neck supple. CVS: Normal heart rate and rhythm. Pulses normal. Respiratory: No respiratory distress. Breath sounds normal. Abdomen: Soft and non-tender. Skin: Skin warm and dry. Normal skin color. Normal skin turgor. Extremities: No lower extremity edema. No calf ttp Neuro: Oriented X 3. No motor deficit. No sensory deficit. Medications Administered Discontinued Medications Generic Name Dose Route Start Last Admin Trade Name Ricoq PRN Reason Stop Dose Admin Alprazolam 0.25 mg 10/31/23 00:31 10/31/23 00:46 Alprazolam 0.25 Mg Tablet PO 10/31/23 00:32 0.25 mg ONCE ONE Administration Medical Decision Making Medical Decision Making MDM Narrative: 33 yo female with PMH of anxiety, hyperlipidemia here with c/o atypical intermittent chest pain along with panic attacks and some GI distress x 2 days without known CAD, not on OCPs, no travel. Sadly she just lost her father unexpectedly who sounds like he was genetically predisposed to cardiac disease. Will obtian CXR, troponin x 1, ddimer, PO xanax if negative will refer to cardiology for further work up and management of symptoms as needed. Differential Diagnosis Differential Diagnoses: The differential diagnosis associated with the presentation includes atypical chest pain, anxiety Admission/Observation Consideration of admission/observation: Escalation of care including admission/observation considered EKG unchanged, trop and ddimer negative stable for DC Lab Data [facility] Lab Attestation statement: I reviewed the patient's lab results. 10/31/23 00:16 10/31/23 00:16 Labs: Lab Results 10/31/23 10/31/23 Range/Units 00:16 00:37 WBC 13.3 H (4.8-10.8) X10*3/uL RBC 4.36 (4.20-5.50) X10*6/uL Hgb 12.5 (12.0-16.0) g/dl Hct 36.3 L (37.0-47.0) % MCV 83.3 (80.0-98.0) fL MCH 28.7 (27.0-33.0) pg MCHC 34.4 (31.0-35.0) g/dl RDW 12.1 (11.0-16.0) % Plt Count 320 (160-400) X10*3/uL MPV 10.0 (9.4-12.3) fL Immature Gran % (Auto) 0.4 (0.0-0.4) % Neut % (Auto) 66.8 (45-73) % Lymph % (Auto) 24.4 (20-40) % Bertie % (Auto) 6.2 (2-11) % Eos % (Auto) 1.7 (0-4) % Baso % (Auto) 0.5 (0-2) % Lymph # (Auto) 3.2 (1.2-4.9) X10*3/uL Bertie # (Auto) 0.8 (0.1-1.2) X10*3/uL Eos # (Auto) 0.2 (0.0-0.4) X10*3/uL Baso # (Auto) 0.1 (0.0-0.2) X10*3/uL Abs Immat Gran (auto) 0.05 H (0.00-0.03) X10*3/uL Absolute Neuts (auto) 8.9 H (2.0-8.3) x10*3/uL Absolute Nucleated RBC 0.000 (0.0-0.012) X10*3/uL Nucleated RBC % (auto) 0.0 (0.0-0.2) /100WBC D-Dimer High Sensitivty < 150 NG/ML Sodium 140 (135-145) mmol/L Potassium 4.1 (3.3-5.1) mmol/L Chloride 106 (96-108) mmol/L Carbon Dioxide 24 (22-29) mmol/L Anion Gap 14 (12-20) BUN 9 (9-16) mg/dL Creatinine 0.75 (0.5-1.4) mg/dL Estim Creat Clear Calc 123.2 Estimated GFR > 60 Random Glucose 107 (60-115) mg/dL Calcium 9.2 (8.4-10.2) mg/dL Total Bilirubin 0.3 (0.0-1.0) mg/dL AST 17 (5-31) U/L ALT 24 (0-31) U/L Alkaline Phosphatase 104 (39-117) U/L Troponin I High Sens < 2.7 (<3.5-17.0) ng/L Total Protein 7.2 (6.5-8.0) g/dL Albumin 4.1 (3.5-5.0) g/dL Independent Interpretation I performed an independent interpretation of an: EKG and Plain X-Ray (normal ) Interpretation: Rate: 102 Rhythm: sinus tachycardia Wynne: normal Normal P waves. Normal GIOVANI. Normal QRS complex. ST T wave : no SARAH, nonspecific ST T wave changes ant leads qTC: 458 prior studies: no change from 2021 The study has been interpreted contemporaneously by me. . Radiology Impression Discussion of test interpretation with radiology: I have reviewed the radiologist's reading. Independent Historian Clinical information obtained from an independent historian. History obtained from or confirmed by: Spouse External Record Review External record reviewed: Inpatient record Discharge Plan Discharge Clinical Impression: Atypical chest pain, Grief reaction Patient Disposition: Home, Self-Care Instructions: Chest Pain (ED), Grief and Loss (ED) Additional Instructions: return for any worsening symptoms or concerns. this may occur and take time to resolve given your sudden and unexpected recent loss you should follow with your primary care doctor given your family history but this will be more likely to affect you in the future your EKG, heart blood tests and chest xray were normal Prescriptions: No Action ibuprofen 600 mg tablet 600 mg PO Q8H PRN (Reason: pain) Qty: 20 0RF cyclobenzaprine 10 mg tablet 10 mg PO Q8H PRN (Reason: muscle spasm) Qty: 15 0RF lidocaine [Lidoderm] 5 % adhesive patch,medicated 1 patch topical DAILY Qty: 15 0RF Rx Instructions: leave on most painful area for up to 12 hrs Referrals: Georgi Rendon MD [Physician] - (as needed cardiology for further symptoms)
[2023-10-31 00:38] LABS: Alanine Aminotransferase 24 U/L (0-31); Albumin Level 4.1 g/dL (3.5-5.0); Alkaline Phosphatase 104 U/L (39-117); Anion Gap 14 (12-20); Aspartate Amino Transferase 17 U/L (5-31); Bilirubin Total 0.3 mg/dL (0.0-1.0); Blood Urea Nitrogen 9 mg/dL (9-16); Calcium 9.2 mg/dL (8.4-10.2); Carbon Dioxide 24 mmol/L (22-29); Chloride 106 mmol/L (96-108); Creatinine Clr Calc Pharmacy 123.2; Estimated Glomerular Filt Rate > 60; Glucose Random 107 mg/dL (60-115); Potassium 4.1 mmol/L (3.3-5.1); Sodium 140 mmol/L (135-145); Total Protein 7.2 g/dL (6.5-8.0)
[2023-10-31 00:44] LABS: Troponin-I High Sensitivity < 2.7 ng/L (<3.5-17.0)
[2023-10-31] MEDS: ALPRAZolam 0.25 MG TABLET PO (00:46)
[2023-10-31 00:54] LABS: D Dimer High Sensitivity < 150 NG/ML
[2023-10-31 01:35] VITALS: BP 157/95; PULSE 77; RESP 20; TEMP 36.7; O2SAT 97
[2023-10-31 01:37] VITALS: PULSE 68
[2023-10-31 02:10] VITALS: BP 157/95; PULSE 77; RESP 20; TEMP 36.7; O2SAT 97
== END 2023-10-31 02:15 | disposition home or self-care (01) ==
PROVIDERS: Emergency Provider Emergency Medicine
DX: R07.89 Other chest pain (principal); F43.20 Adjustment disorder, unspecified; Z63.4 Disappearance and death of family member
CPT/HCPCS: 36415; 71045; 80053; 84484; 85025; 85379; 93005; 99283; 99285

== ENCOUNTER → 2023-10-30 23:48 | Outpatient (BNV) | payer OTHER, SELFPAY | PROVIDERS: Emergency Provider Emergency Medicine; Visit Provider Internal Medicine Cardiovascular Disease | DX: R07.9 Chest pain, unspecified (principal) | CPT/HCPCS: 93010 ==

== ENCOUNTER 2023-11-26 08:21 | Outpatient (AMB) | payer OTHER, SELFPAY ==
--- NOTE | 2023-11-26 08:22 | A.OFFVIS_ITS ---
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 She ruled out for ACS. She was referred to Cardiology in follow-up. Today she presents for cardiology consultation. She states that on the day of her emergency room visit she was having various symptoms including belching, nausea, chest pressure. She has had similar symptoms before in the setting of anxiety and panic attacks. She has been distress over the recent loss of her father due to sudden cardiac arrest. No clear exertional chest discomfort. No concerning shortness of breath, lightheadedness, presyncope, syncope, PND, orthopnea or edema. She does feel an occasional heart palpitation without specific concerns. No known cardiac history. No history of smoking. Rare social alcohol use. Describes herself as active with frequent walking which she tolerates well. [facility] Medical History (Updated 11/26/23 @ 09:13 by RONALD You) Hyperlipidemia Anxiety Family History Father Cardiac arrest Social History Alcohol intake: current Alcohol intake frequency: does not drink Alcohol type: wine Patient Tobacco Use Status: Never used Tobacco Substance Use Type: Marijuana Review of Systems Const All systems reviewed & are unremarkable except as noted in HPI and below ENT Denies dizziness Card Denies chest pain, Denies chest pain at rest, Denies chest pain with activity, Denies rapid heart rate, Denies pedal edema, Denies edema, Denies leg edema, Denies lightheadedness, Denies palpitations, Denies dyspnea, Denies dyspnea on exertion and Denies orthopnea Resp Denies cough, Denies dyspnea and Denies dyspnea on exertion GI Denies hematochezia and Denies change in stool character Musc Denies abnormal gait, Denies limited range of motion, Denies muscle cramps, Denies muscle weakness, Denies numbness, Denies radiating pain into limb, Denies stiffness and Denies tingling Neuro Denies abnormal gait, Denies dizziness, Denies numbness and Denies tingling Endo Denies palpitations Physical Exam Vital Signs: Last Vital Signs Pulse 65 11/26/23 08:23 BP 124/72 11/26/23 08:23 BMI result Body Mass Index 42.5 Const General: cooperative, healthy appearing, comfortable and no acute distress Orientation/consciousness: patient oriented x3 Neck Neck: Yes normal visual inspection and Yes no JVD Resp Effort & Inspection: normal respiratory effort Auscultation: clear to auscultation bilaterally, no crackles, no rales, no rhonchi and no wheezes Cardio Jugular venous distension: no JVD Rate: regular rate Rhythm: regular rhythm Heart sounds: S1 normal heart sound present, S2 normal heart sound present, no murmurs and no rubs Skin General skin exam: no rashes or lesions noted Neuro General: patient oriented x3 Extrem General: Yes normal to inspection, No no pedal edema and No calf tenderness Psych Appearance: grossly normal Mental Status: mental status grossly normal Speech and movement: Normal speech and movement present Assessment & Plan Assessment & Plan (1) Atypical chest pain: Code(s): R07.89 - Other chest pain Category: Medical Plan: For atypical sounding chest discomfort. She ruled out for ACS with normal troponins, EKG with no acute ST or T-wave abnormalities. She had normal D- dimer, and chest x-ray showing no acute findings. She has cardiac risk factors of obesity, hyperlipidemia and family history. Her father had sudden fatal cardiac arrest 2 months ago. She reports a history of anxiety and panic attacks. On the day of her ER visit she believes her symptom were related to p anic attack. She does not have exertional chest discomfort. She has much anxiety over her cardiac health. She recently started on statin therapy and has an upcoming repeat lipid profile do. She is considering referral to the bariatric program. At this time will check an echocardiogram to assess for any structural heart disease. Will check an exercise stress test to assess for any exercise-induced ischemia. Cardiology follow-up in 6 weeks, sooner if needed. (2) Family history of cardiac arrest: Code(s): Z82.49 - Family history of ischemic heart disease and other diseases of the circulatory system Category: Medical Plan: Father of sudden cardiac arrest 2 months ago (3) Hyperlipidemia: Code(s): E78.5 - Hyperlipidemia, unspecified Category: Medical Plan: [place] LDL goal less than 100. She recently started on statin. Labs being followed by her PCP. (4) Anxiety: Code(s): F41.9 - Anxiety disorder, unspecified Category: Medical Plan: History of anxiety and panic attacks which may contribute to her symptoms. Plan Time spent on chart review, documentation, interview and assessment Orders: Orders CA echo transthoracic complete Today R07.89 - Other chest pain, Z82.49 - Family history of ischemic heart disease and other diseases of the circulatory system CA stress test Today R07.89 - Other chest pain, Z82.49 - Family history of ischemic heart disease and other diseases of the circulatory system Medications: Discontinued lidocaine 5% (Lidoderm) leave on most painful area for up to 12 hrs Discontinued Reason: Patient no longer taking 1 patch topical DAILY 15 ea 0RF cyclobenzaprine Discontinued Reason: Patient no longer taking 10 mg PO Q8H PRN 15 tabs 0RF muscle spasm Coding Level of Care Code New Pt Level 4 (25464) Diagnoses Atypical chest pain R07.89 Family history of cardiac arrest Z82.49 Hyperlipidemia E78.5 Anxiety F41.9 Time Spent (min) 30
[2023-11-26 08:23] VITALS: BP 124/72; PULSE 65; BMI 42.5
== END 2023-11-26 08:52 | disposition home or self-care (01) ==
PROVIDERS: Visit Provider Nurse Practitioner Family
DX: R07.89 Other chest pain (principal); Z82.49 Family history of ischemic heart disease and other diseases of the circulatory system; E78.5 Hyperlipidemia, unspecified; F41.9 Anxiety disorder, unspecified
CPT/HCPCS: 99204

== ENCOUNTER → 2023-11-26 08:21 | Outpatient (BNVA) | payer OTHER, SELFPAY | PROVIDERS: Visit Provider Nurse Practitioner Family ==

== ENCOUNTER → 2024-01-27 09:05 | Outpatient (REF) | payer OTHER, SELFPAY ==
--- NOTE | 2024-01-27 09:11 | CA_ITS ---
Acquisition Time: 2024-01-27 10:23:19 Total Exercise Time: 00:06:33 Test Indications: CHEST PAIN Medications: Protocol: AVNI Max HR: 169 BPM 90% of Pred: 187 BPM Max BP: 148/084 mmHG Max Work Load: 7.7 METS Exercise stress test exercise 6 min 33 sec of Anvi protocol achieving 90% MPHR, without anginal symptoms, with isolated PVCs and ventricular bigeminy, with normotensive response to exercise, without EKG changes. Test reviewed with Dr. Emmanuel Referred By: Vickie Krueger Overread By: Celia Sargent
--- NOTE | 2024-01-27 09:11 | CA_ITS ---
Transthoracic Echocardiogram Patient (Last, First, Middle): Urmila Ortega, Gender: Female Date of : 1990 Age: 33 Procedure Date: 01/27/2024 Procedure Type: Transthoracic Echocardiogram Location: OP Height: 162.56 cm Weight: 108.86 kg BSA: 2.11 m2 Heart Rate: 68 bpm BP: 125 / 70 mmHg [place]ops Consultant: MEI Mcclain MD: Vickie Krueger RESEARCH EPIDEMIOLOGIST-C [employer] Maid: Boo Emmanuel MD Symptoms: R07.89 - Other chest pain Study Quality: Adequate w/Contrast ECG Rhythm: Arrhythmia Conclusions: - Essentially normal study Findings Procedure Information Contrast agent, definity, is being given per protocol without apparent complications. Left Ventricle Normal left ventricular size, thickness, and systolic function. The visually estimated ejection fraction is between 55-60%. Spectral Doppler is indicative of a normal filling pattern. Right Ventricle Normal right ventricular cavity size and systolic function. Atria The left atrium is normal in size. Interatrial shunt cannot be excluded. The right atrium was not well visualized. Aortic Valve The aortic valve structure and function is likely normal. There is no aortic valve stenosis. There is no aortic valve regurgitation. Mitral Valve Normal mitral valve structure and function. There is trace mitral valve regurgitation. There is no mitral valve stenosis. Pulmonic Valve The pulmonic valve was not well visualized. Tricuspid Valve Likely normal tricuspid valve structure and function. Tricuspid regurgitation envelope is inadequate for calculation of right ventricular systolic pressure. Normal right atrial pressure. Great Vessels The pulmonary artery was not well visualized. There is no dilatation of the ascending aorta measuring 3.10 cm. Venous The inferior vena cava is normal in size and collapses greater than 50% with inspiration. Pericardium/Pleural There is no evidence of pericardial effusion. Prior Study Comparison No prior study available for comparison. Measurements 2D Linear Measurements IVSd: 0.94 0.6-0.9/0.6-1.0 cm LVIDd: 4.93 3.9-5.3/4.2-5.9 cm LVIDd Index: 2.34 2.4-3.2/2.2-3.1 cm/m2 LVIDs: 3.45 2.0-3.6 cm LVPWd: 1.16 0.7-1.1 cm LA Diam: 3.70 2.7-3.8/3.0-4.0 cm LAIDs Index: 1.75 1.5-2.3 cm/m2 LV Mass: 237.02 67-162/88-224 g LV Mass Index: 112.33 43-95/49-115 g/m2 LVOT Diam: 2.00 3.0+(-)1.3 cm Mitral Valve MV Pk E: 0.90 MV PK A: 0.60 MV Decel Time: 198.00 E/A: 1.50 E'Lateral: 13.40 E'Medial: 10.80 E/E' Med: 8.40 E/E' Lat: 6.70 PHT: 58.00 MVA PHT: 3.79 Decel Obion: 4.55 Aortic Valve AoV Pk Alonso: 1.41 AoV Mn Alonso: 1.00 AoV VTI: 0.30 AoV Pk Grad: 8.00 Aov Mn Grad: 4.00 CLAUDIA Cont.VTI: 2.59 LVOT LVOT Pk Alonso: 1.07 LVOT Mn Alonso: 0.81 LVOT VTI: 0.25 LVOT Pk Grad: 5.00 LVOT Mn Grad: 3.00 LVOT Diam: 2.00 LVOT Area: 3.14 Diastolic Function MV Pk E: 0.90 MV Pk A: 0.60 E/A: 1.50 E'Medial: 10.80 E/E' Med: 8.40 E' Laterial: 13.40 E/E' Lat: 6.70 Right Ventricle TAPSE (mm): 13.45 TVS' Alonso: 11.40 Tricuspid Valve TR Pk Alonso: 2.24 TR Pk Grad: 20.00 Great Vessels Aorta Sinus of Valsalva: 2.60 2.0-3.5 cm Ao Asc: 3.10 2.1-3.4 cm Pulmonary Valve PV Pk Alonso: 1.48 Peak PV Grad: 9.00 Updated in Other Vendor System with Status of Final Boo Emmanuel MD electronically signed on 01/28/2024 9:21:05 AM with status of Final
== END ==
LOC: HO.CARD 09:05
PROVIDERS: Visit Provider Nurse Practitioner Family
DX: R07.89 Other chest pain (principal); Z82.49 Family history of ischemic heart disease and other diseases of the circulatory system
CPT/HCPCS: 93017; 93306; Q9957

== ENCOUNTER → 2024-01-27 09:11 | Outpatient (BNV) | payer OTHER, SELFPAY | PROVIDERS: Visit Provider Nurse Practitioner | DX: R07.89 Other chest pain (principal) | CPT/HCPCS: 93016; 93018; 93320; 93325; 93350; 93352 ==

== ENCOUNTER 2024-02-21 13:58 | Outpatient (AMB) | payer OTHER, SELFPAY ==
[2024-02-21 13:59] VITALS: BP 136/93; PULSE 82; BMI 41.0
--- NOTE | 2024-02-21 13:59 | A.OFFVIS_ITS ---
Vital Signs 02/21/24 13:59 Height 5 ft 3 in Weight 231 lb 7.766 oz BMI 41.0 BP 136/93 H Blood Pressure Location Lt brachial Position Sitting Pulse 82 Pulse Source Pulse Oximeter Intake Visit Reasons: f/u after testing Allergies doxycycline [DOXYCYCLINE] Allergy (Unknown, Verified 11/26/23 08:24) HIVES Medication List - Last Reconciled 02/21/24 by Vickie Krueger, VAZQUEZ-C alprazolam mg PO atorvastatin 10 mg PO DAILY ibuprofen 600 mg PO Q8H PRN semaglutide (Ozempic) 0.5 mg subcut QWEEK HPI HPI f/u after testing: Details: Urmila is a 33-year-old female with past medical history of obesity, hyperlipidemia, family history of cardiac arrest who was evaluated for atypical sounding chest discomfort and underwent an echocardiogram and stress test and now presents for follow-up. Today she reports that she has been feeling well since her last visit. She has not been getting any concerning chest discomfort. She has been feeling less stress and anxiety. She is still grieving over the loss of her father a few months ago. No concerning shortness of breath, lightheadedness, presyncope, syncope, PND, orthopnea or edema. She does feel an occasional heart palpitation without specific concerns. No known cardiac history. No history of smoking. Rare social alcohol use. Describes herself as active with frequent walking which she tolerates well. [facility] Medical History Hyperlipidemia Anxiety Family History Father Cardiac arrest Social History Alcohol intake: current Alcohol intake frequency: does not drink Alcohol type: wine Patient Tobacco Use Status: Never used Tobacco Substance Use Type: Marijuana Review of Systems Const All systems reviewed & are unremarkable except as noted in HPI and below Denies weakness ENT Denies dizziness Card Denies chest pain, Denies chest pain with activity, Denies syncope, Denies rapid heart rate, Denies pedal edema, Denies edema, Denies leg edema, Denies lightheadedness, Denies palpitations, Denies dyspnea, Denies dyspnea on exertion and Denies orthopnea Resp Denies cough, Denies dyspnea and Denies dyspnea on exertion GI Denies hematochezia and Denies change in stool character Musc Denies abnormal gait, Denies muscle cramps, Denies muscle weakness, Denies numbness, Denies radiating pain into limb and Denies tingling Neuro Denies abnormal gait, Denies dizziness, Denies syncope, Denies numbness, Denies tingling and Denies weakness Endo Denies palpitations Physical Exam Vital Signs: Last Vital Signs Pulse 82 02/21/24 13:59 BP 136/93 H 02/21/24 13:59 BMI result Body Mass Index 41.0 Const General: cooperative, healthy appearing, comfortable and no acute distress Orientation/consciousness: patient oriented x3 Neck Neck: Yes normal visual inspection and Yes no JVD Resp Effort & Inspection: normal respiratory effort Auscultation: clear to auscultation bilaterally, no crackles, no rales, no rhonchi and no wheezes Cardio Jugular venous distension: no JVD Rate: regular rate Rhythm: regular rhythm Heart sounds: S1 normal heart sound present, S2 normal heart sound present, no murmurs and no rubs Skin General skin exam: no rashes or lesions noted Neuro General: patient oriented x3 Extrem General: Yes normal to inspection, No no pedal edema and No calf tenderness Psych Appearance: grossly normal Mental Status: mental status grossly normal Speech and movement: Normal speech and movement present Assessment & Plan Assessment & Plan (1) Atypical chest pain: Code(s): R07.89 - Other chest pain Category: Medical Plan: Cardiac evaluation for atypical sounding chest discomfort. ER visit for chest pains 10/01/2023 and She ruled out for ACS with normal troponins, EKG with no acute ST or T-wave abnormalities. She had normal D-dimer, and chest x-ray show ing no acute findings. She has cardiac risk factors of obesity, hyperlipidemia and family history. Her father had sudden fatal cardiac arrest 5 months ago. She has a history of anxiety and panic attacks which can contribute. She underwent an echocardiogram on 01/27/2024 showing normal study. An exercise stress test was done on 01/27/2024 showing exercise 6.5 minutes with no chest discomfort and no EKG changes of ischemia. She has been doing well since her last visit here in October. She has not been having any concerning chest discomfort. Test results reviewed with her in detail. Offered reassurance. Signs and symptoms of angina discussed. Cardiac risk factor modification reviewed. Cardiology follow-up as needed. (2) Family history of cardiac arrest: Comment: Father of sudden cardiac arrest 09/2023 Code(s): Z82.49 - Family history of ischemic heart disease and other diseases of the circulatory system Category: Medical Plan: Father of sudden cardiac arrest 5 months ago (3) Hyperlipidemia: Code(s): E78.5 - Hyperlipidemia, unspecified Category: Medical Plan: [place] LDL goal less than 100. She recently started on statin. Labs being followed by her PCP. (4) Anxiety: Code(s): F41.9 - Anxiety disorder, unspecified Category: Medical Plan: History of anxiety and panic attacks which may contribute to her symptoms. (5) Contraction, premature, ventricular: Code(s): I49.3 - Ventricular premature depolarization Category: Medical Plan: History of having PVCs. She can feel the heart palpitation. Recent echo shows normal EF. She did have isolated PVCs and some ventricular bigeminy during recent exercise stress test. In the setting of normal EF PVCs are benign. Offered reassurance. She says she is aware of the triggers of her PVCs. Anxiety, stress, caffeinated beverages and alcohol. She is aware to avoid these triggers. Plan Time spent on chart review, documentation, interview and assessment Coding Level of Care Code Est Pt Level 3 (71271) Diagnoses Atypical chest pain R07.89 Family history of cardiac arrest Z82.49 Hyperlipidemia E78.5 Anxiety F41.9 Contraction, premature, ventricular I49.3 Time Spent (min) 22
== END 2024-02-21 14:58 | disposition home or self-care (01) ==
PROVIDERS: Visit Provider Nurse Practitioner Family
DX: R07.89 Other chest pain (principal); Z82.49 Family history of ischemic heart disease and other diseases of the circulatory system; E78.5 Hyperlipidemia, unspecified; F41.9 Anxiety disorder, unspecified; I49.3 Ventricular premature depolarization
CPT/HCPCS: 99213

== ENCOUNTER → 2024-02-21 13:58 | Outpatient (BNVA) | payer OTHER, SELFPAY | PROVIDERS: Visit Provider Nurse Practitioner Family ==

== ENCOUNTER 2025-06-30 17:20 | Emergency (ER) | payer OTHER, SELFPAY ==
--- NOTE | 2025-06-30 17:22 | ECG_ITS ---
Test Reason : CP Blood Pressure : */* mmHG Vent. Rate : 84 BPM Atrial Rate : 84 BPM P-R Int : 134 ms QRS Dur : 74 ms QT Int : 368 ms P-R-T Axes : 41 16 19 degrees QTcB Int : 434 ms Normal sinus rhythm Normal ECG When compared with ECG of 30-Oct-2023 23:48, Nonspecific T wave abnormality no longer evident in Anterior leads Referred By: Mojgan Gilliam Electronically Signed By: ESME PANTOJA
[2025-06-30 17:33] VITALS: BP 143/81; PULSE 84; RESP 20; TEMP 36.4; O2SAT 95; BMI 34.7
--- NOTE | 2025-06-30 17:35 | ED.GENADULT ---
HPI - General Adult General Chief complaint: Chest Pain Stated complaint: chest pain/sob/jaw pain/left arm numb Time Seen by Provider: 06/30/25 21:51 History of Present Illness ED Provider: Aurelio NEWBERRY narrative: The patient is a 34-year-old female who says that she did some yard work today around her house and subsequently developed some discomfort in the region of her left shoulder in the left upper back. Then she felt some discomfort in the left jaw and possibly some mild shortness of breath. The patient says that she became worried that her symptoms might represent a heart attac. Her father suddenly of a heart attack over a year ago. She says that he has been very healthy and athletic until that point. It was an abrupt an unexpected heart attack. He was 67 at the time. She admits that she has been worried about her heart ever since. The patient came to the emergency room about an hour after the onset of her symptoms today. While waiting to be seen her symptoms have entirely resolved aside from some pain in the left side of her head. She now says that she thinks that she woke up with some left-sided head pain that she feels may be a prodrome of a migraine. The patient takes Wellbutrin. She is on no hormonal medications. Related Data Home Medications ?Medication ?Instructions ?Recorded ?Confirmed alprazolam 0.5 mg tablet mg PO 11/26/23 02/21/24 atorvastatin 10 mg tablet 10 mg PO DAILY 11/26/23 02/21/24 semaglutide 0.25 mg or 0.5 mg (2 0.5 mg subcut QWEEK 02/21/24 02/21/24 mg/3 mL) subcutaneous pen injector (Ozempic) Previous Rx's ?Medication ?Instructions ?Recorded ibuprofen 600 mg tablet 600 mg PO Q8H PRN pain #20 tabs 03/27/23 Allergies Allergy/AdvReac Type Severity Reaction Status Date / Time doxycycline (DOXYCYCLINE) Allergy Unknown HIVES Verified 06/30/25 17:36 Review of Systems Review of Systems: Yes all other systems are reviewed and are negative [facility] Past Medical History Medical History Hyperlipidemia Anxiety Family History Family History Father Cardiac arrest Social History Social History Alcohol intake: current Alcohol intake frequency: does not drink Alcohol type: wine Patient Tobacco Use Status: Never used Tobacco Smoked in Last 30 Days: No Substance Use Type: Marijuana Substance Use Frequency: Occasionally Advance Directives: No Advance Directives Information Provided: No Do you have a plan to hurt others: No Plan Physical Exam ED Vital Signs: Vital Signs - 24 hr 06/30/25 17:33 06/30/25 21:45 Temperature 97.6 F Pulse Rate 84 76 Respiratory Rate 20 16 Blood Pressure 143/81 H 123/83 Pulse Oximetry 95 98 Oxygen Delivery Method Room Air Room Air BMI result Body Mass Index 34.7 Const Other: The patient is a 34-year-old woman who was awake and alert, pleasant and cooperative. She is cheerful and pleasant and looks entirely well. Orientation/consciousness: patient oriented x3 HENMT Other: The face is symmetrical. ?Mucous membranes moist. Eyes Other: Pupils are round equal, conjunctivae are clear, extraocular movements intact Neck Neck: Yes normal visual inspection, Yes full ROM and Yes no JVD Resp Effort & Inspection: normal respiratory effort Auscultation: clear to auscultation bilaterally Cardio Rate: regular rate Rhythm: regular rhythm Heart sounds: S1 normal heart sound present and S2 normal heart sound present GI Other: Abdomen is soft and nontender Skin Other: The skin is dry and unremarkable Neuro General: patient oriented x3, gait normal, tone normal, moves all extremities, no focal motor deficits and CN's II-XI intact bilaterally Extrem Other: There is no calf swelling or tenderness. No asymmetry. No peripheral edema. Course Course Course Narrative: This is a Rapid Medical Examination (RME) performed by Tristen Gilliam PA-C in triage. Full HPI, ROS, assessment and treatment plan per primary provider in the Main ED. Hx: 34 yo F here for eval of L shoulder pain extending to L jaw, back and down L arm. reports father passed of an CO in his 60s. Plan: labs, ekg Medical Decision Making Medical Decision Making MDM Narrative: The patient is a 34-year-old female who comes to the emergency room for evaluation of symptoms that developed after she was doing yard work around her house. She says that she has been doing raking and other similar activities. She had some mild discomfort in the left shoulder and left upper back and also in the region of the left jaw. She was worried that this could represent the warning of a heart attack given that her father recently of a sudden heart attack. The patient has no history of hypertension, diabetes, or smoking. She was on low-dose atorvastatin for awhile but her cholesterol is improved and she has been taken off this medication. There was no family history of early coronary disease. She is premenopausal and on no hormonal medications. She is PERC negative. She has a normal EKG. Her troponin is negative. Her symptoms have entirely resolved while waiting to be seen. My suspicion that this could represent an acute coronary syndrome is profoundly low given her absence of risk factors for early coronary disease. I do not think she requires a 2nd troponin since she has been waiting for several hours and looks entirely well. She will be discharged to follow up with the regular doctor or return if worse. Lab Data 06/30/25 18:36 06/30/25 18:36 Labs: Lab Results 06/30/25 Range/Units 18:36 WBC 8.4 (4.8-10.8) X10*3/uL RBC 4.37 (4.20-5.50) X10*6/uL Hgb 12.7 (12.0-16.0) g/dl Hct 37.1 (37.0-47.0) % MCV 84.9 (80.0-98.0) fL MCH 29.1 (27.0-33.0) pg MCHC 34.2 (31.0-35.0) g/dl RDW 11.5 (11.0-16.0) % Plt Count 295 (160-400) X10*3/uL MPV 9.8 (9.4-12.3) fL Immature Gran % (Auto) 0.4 (0.0-0.4) % Neut % (Auto) 67.2 (45-73) % Lymph % (Auto) 23.6 (20-40) % [place] % (Auto) 6.4 (2-11) % Eos % (Auto) 1.8 (0-4) % Baso % (Auto) 0.6 (0-2) % Lymph # (Auto) 2.0 (1.2-4.9) X10*3/uL [place] # (Auto) 0.5 (0.1-1.2) X10*3/uL Eos # (Auto) 0.2 (0.0-0.4) X10*3/uL Baso # (Auto) 0.1 (0.0-0.2) X10*3/uL Abs Immat Gran (auto) 0.03 (0.00-0.03) X10*3/uL Absolute Neuts (auto) 5.7 (2.0-8.3) x10*3/uL Absolute Nucleated RBC 0.000 (0.0-0.012) X10*3/uL Nucleated RBC % (auto) 0.0 (0.0-0.2) /100WBC Sodium 143 (135-145) mmol/L Potassium 4.2 (3.3-5.1) mmol/L Chloride 107 (96-108) mmol/L Carbon Dioxide 26 (22-29) mmol/L Anion Gap 14 (12-20) BUN 13 (9-16) mg/dL Creatinine 0.80 (0.5-1.4) mg/dL Estim Creat Clear Calc 108.7 Estimated GFR > 60 Random Glucose 86 (60-115) mg/dL Calcium 9.1 (8.4-10.2) mg/dL Magnesium 2.1 (1.6-2.6) mg/dL Total Bilirubin 0.4 (0.0-1.0) mg/dL AST 17 (5-31) U/L ALT 11 (0-31) U/L Alkaline Phosphatase 92 (39-117) U/L Troponin I High Sens < 2.7 (<3.5-17.0) ng/L Total Protein 7.3 (6.5-8.0) g/dL Albumin 4.5 (3.5-5.0) g/dL Independent Interpretation I performed an independent interpretation of an: EKG Interpretation: EKG at 17:27 shows normal sinus rhythm at 84 beats per minute. It is a normal EKG. No worrisome changes. Discharge Plan Discharge Clinical Impression: Left shoulder pain Patient Disposition: Home, Self-Care Additional Instructions: Your EKG and your testing in the emergency room today is reassuring. Despite your family history I think it is very unlikely that you, at such a young age, are very unlikely to be at risk for an early heart attack. I think that your symptoms may has been something more like the prodrome of a migraine or possibly some musculoskeletal pain. Please plan on following up with your regular doctor in the next few weeks to discuss this episode further. Return to the emergency room if significantly worse. Prescriptions: No Action ibuprofen 600 mg tablet 600 mg PO Q8H PRN (Reason: pain) Qty: 20 0RF Ozempic 0.25 mg or 0.5 mg (2 mg/3 mL) pen injector 0.5 mg subcut QWEEK atorvastatin 10 mg tablet 10 mg PO DAILY alprazolam 0.5 mg tablet PO Referrals: Yue Melgar NP [Primary Care Provider, Family Practice] Print Language: Botswanan
[2025-06-30 18:40] LABS: MANUAL DIFF FLAG NO
[2025-06-30 18:41] LABS: Hematocrit 37.1 % (37.0-47.0); Hemoglobin 12.7 g/dl (12.0-16.0); Imm Gran Abs Auto 0.03 X10*3/uL (0.00-0.03); Imm Gran Pct Auto 0.4 % (0.0-0.4); Lymphocytes Absolute Auto 2.0 X10*3/uL (1.2-4.9); Mean Corpuscular HGB Conc 34.2 g/dl (31.0-35.0); Mean Corpuscular Hemoglobin 29.1 pg (27.0-33.0); Mean Corpuscular Volume 84.9 fL (80.0-98.0); NRBC Abs Auto 0.000 X10*3/uL (0.0-0.012); NRBC Pct Auto 0.0 /100WBC (0.0-0.2); Platelet Count 295 X10*3/uL (160-400); Red Blood Count 4.37 X10*6/uL (4.20-5.50); White Blood Count 8.4 X10*3/uL (4.8-10.8)
[2025-06-30 19:02] LABS: Alanine Aminotransferase 11 U/L (0-31); Albumin Level 4.5 g/dL (3.5-5.0); Alkaline Phosphatase 92 U/L (39-117); Anion Gap 14 (12-20); Aspartate Amino Transferase 17 U/L (5-31); Blood Urea Nitrogen 13 mg/dL (9-16); Calcium 9.1 mg/dL (8.4-10.2); Carbon Dioxide 26 mmol/L (22-29); Chloride 107 mmol/L (96-108); Creatinine Clr Calc Pharmacy 108.7; Estimated Glomerular Filt Rate > 60; Magnesium 2.1 mg/dL (1.6-2.6); Potassium 4.2 mmol/L (3.3-5.1); Sodium 143 mmol/L (135-145); Total Protein 7.3 g/dL (6.5-8.0)
[2025-06-30 19:13] LABS: Troponin-I High Sensitivity < 2.7 ng/L (<3.5-17.0)
[2025-06-30 21:45] VITALS: BP 123/83; PULSE 76; RESP 16; O2SAT 98
--- OUTSIDE RECORDS SUMMARY | 2025-06-30 22:03 | XMS_ITS | Encounter Summary ---
Author Organization [facility] Address [address] [facility] [address] [place] [address] Phone Care Team Providers Care Bowling Ball Weigher And Packer Name Role Phone Johana Hidalgo Primary Care Prov ider Idalmis Melgar DO Primary Care Provider + [phone] Reason for Referral * MRI/CAT Scan - Closed Specialty Diagnoses / Procedures Referred By Contjonathon t Referred To Contact Radiology Diagnoses Hepatomegaly, not elsewhere classified Procedures MRI Abdomen CHG MRI, ABDOMEN, COMBO Johana Hidalgo PA Phone: tel: fax: mailto:[email or web address] Referral ID Status Reason Start Date Expiration Date Visits Re quested Visits Authorized [id number] Closed 06/30/2023 2023 1 1 Encounter Details Date Type Department Care Team (Late st Contact Info) Description 06/30/2023 Transcribe Orders Virtual Department [address] [place] [address] Johana Hidalgo PA [address] [place] [address] eva Hepatomegaly, not elsewhere classified (Primary Dx) Social History Tobacco Use Types Packs/Day Years Used Date Smoking Tobacco: Never Smokeless Tobacco: Never Alcohol Use Standard Drinks/Week Comments Yes 0 (1 standard drink = 0.6 oz pur e alcohol) rare Education Answer Date Recorded Are you interested in more education? Not on rupert e 11/27/2022 Are you concerned about learning? Not on file 11/27/2022 No 11/27/2022 No 11/27/2022 Digital Access Answer Date Recorded No 12/25/2022 No 12/25/2022 Reliable internet access at home? Not on file 12/25/2022 Device with a working camera? Not on file Comments No Sex and Gender Information Value Date Recorded Sex Assigned at Not on file Legal Sex Female 9:02 PM EDT Gender Identity Not on file Sexual Orientation Not on file documented as of this encounter Plan of Treatment Not on file documented as of this encounter Results * MRI ABDOMEN (LIVER) WITH AND WITHOUT CONTRAST (08/05/2023 11:30 AM EST) Anatomical Region Laterality Modality Abdomen Magnetic Resonan ce 08/05/2023 5:12 PM EST Impressions 08/06/2023 6:21 AM EST 2.4 cm hepatic segment 2 focal lesion, most likely a focal nodular hyperplasia (FNH) or adenoma. Hepatic steatosis. Narrative 08/06/2023 6:21 AM EST MRI ABDOMEN (LIVER) WITH AND WITHOUT CONTRAST Referring clinician's provided indication for this examination in Epic: Outside Radiology Order; LIVER MASS TECHNIQUE: Multiplanar MR imaging of the abdomen was performed using T1, T2, fat saturated, and diffusion weighted techniques. Dynamic multiphase imaging was also performed after administration of an intravenous gadolinium contrast agent. COMPARISON: None FINDINGS: Lower Chest: Within normal limits. Liver: Steatosis. 2.4 cm mildly T2 hyperintense, arterially hyperenhancing focal lesion in hepatic segment 2 (5:15, 7:17) which demonstrates persistent hyperenhancement relative to background parenchyma on portal venous/delayed phases. No intralesional fat. Biliary: No duct dilation or filling defect. Noninflamed gallbladder. Spleen: No splenomegaly or suspicious focal lesion. Pancreas: No solid mass or main duct dilation. Adrenal Glands: No nodule. Kidneys/Ureters: No solid renal mass or hydronephrosis. Peritoneum/Retroperitoneum: No abdominal free fluid or mass. Lymph Nodes: No lymphadenopathy. Vessels: No abdominal aortic aneurysm. Bones/Soft Tissues: No suspicious osseous lesion. Procedure Note Hollis Ricardo MD - 08/06/2023 MRI ABDOMEN (LIVER) WITH AND WITHOUT CONTRAST Referring clinician's provided indication for this examination in Epic:Outside Radiology Order; LIVER MASS TECHNIQUE: Multiplanar MR imaging of the abdomen was performed using T1,T2, fat saturated, and diffusion weighted techniques. Dynamic multiphaseimaging was also performed after administration of an intravenousgadolinium contrast agent. COMPARISON: None FINDINGS: Lower Chest: Within normal limits. Liver: Steatosis. 2.4 cm mildly T2 hyperintense, arterially hyperenhancingfocal lesion in hepatic segment 2 (5:15, 7:17) which demonstratespersistent hyperenhancement relative to background parenchyma on portalvenous/delayed phases. No intralesional fat. Biliary: No duct dilation or filling defect. Noninflamed gallbladder. Spleen: No splenomegaly or suspicious focal lesion. Pancreas: No solid mass or main duct dilation. Adrenal Glands: No nodule. Kidneys/Ureters: No solid renal mass or hydronephrosis. Peritoneum/Retroperitoneum: No abdominal free fluid or mass. Lymph Nodes: No lymphadenopathy. Vessels: No abdominal aortic aneurysm. Bones/Soft Tissues: No suspicious osseous lesion. IMPRESSION: 2.4 cm hepatic segment 2 focal lesion, most likely a focal nodularhyperplasia (FNH) or adenoma. Hepatic steatosis. us Johana MORAES IMG MR ABDOMEN Fi nal Result documented in this encounter Visit Diagnoses Diagnosis Hepatomegaly, not elsewhere classified- Primary documented in this encounter Care Teams Bowling Ball Weigher And Packer Relationship Specialty Start Date End Date Johana Hidalgo PA [address] [place] [address] PCP - General Physician Call Center Nurse 04/16/23 08/03/23 Idalmis Melgar DO [address] [place] [address] [email or web address] PCP - General Family Medicine 08/04/23 documented as of this encounter Additional Source Comments The information contained in this document represents components of the legal health record. It is not the complete legal health record.[facility]
--- OUTSIDE RECORDS SUMMARY | 2025-06-30 22:03 | XMS_ITS | Encounter Summary ---
Author Organization [facility] Address [address] [facility] [address] [place] [address] Phone Care Team Providers Care Textile Dyer Name Role Phone Idalmis Melgar Primary Care Provider [phone] Encounter Details Date Type Department Care Team (Late st Contact Info) Description 10/25/2024 Procedure Pass [facility], [facility] [address] [place] [address] Social History Tobacco Use Types Packs/Day Years Used Date Smoking Tobacco: Never Smokeless Tobacco: Never Alcohol Use Standard Drinks/Week Comments Not Currently 0 (1 standard drink = 0.6 oz [...] with a working camera? Not on file Intimate Partner Violence Answer Date R ecorded Are you denied basic needs s uch as food, clothing, or medical care? No 08/04/2023 In the past 12 months have y ou been in a relationship with a person who hurts, threatens, or tries to control you? No 08/04/2023 Are you denied basic needs s uch as food, clothing, or medical care? No 08/04/2023 In the past 12 months have y ou been in a relationship with a person who hurts, threatens, or tries to control you? No 08/04/2023 Comments No Sex and Gender Information Value Date Recorded Sex Assigned at Not on file Legal Sex Female 9:02 PM EDT Gender Identity Not on file Sexual Orientation Not on file documented as of this encounter Plan of Treatment Not on file documented as of this encounter Visit Diagnoses Not on filedocumented in this encounter Care Teams Textile Dyer Relationship Specialty Start Date End Date Idalmis Melgar DO [address] [place] [id number] PCP - General Family Medicine 08/04/23 documented as of this encounter Additional Source Comments The information contained in this document represents components of the legal health record. It is not the complete legal health record.[facility]
--- OUTSIDE RECORDS SUMMARY | 2025-06-30 22:03 | XMS_ITS | Encounter Summary ---
Author Organization [facility] Address [address] [facility] [address] [place] [address] Phone Care Team Providers Care Slitter Scorer Name Role Phone Ramón Idalmis Rasmussen Primary Care Provider + [phone] Reason for Referral * Outpatient Procedure - Closed Specialty Diagnoses / Procedures Referred By Rachel echevarria Referred To Contact Radiology Diagnoses Mass of left breast, unspecified quadrant Procedures Mammogram Diagnostic Post Procedure (Left) Beau Panchal MD [address] [place] [address] Phone: tel: fax: [email or web address] Referral ID Status Reason Start Date Expiration Date Visits Re quested Visits Authorized [id number] Closed 12/04/2024 1 1 Encounter Details Date Type Department Care Team (Late st Contact Info) Description 12/04/2024 Ancillary Orders [facility] [address] [place] [address] [place] [address] Beau Panchal MD [address] [place] [phone] [email or web address] Mass of left breast, unspecified quadrant (Primary Dx) Social History Tobacco Use Types [...] documented as of this encounter Results * BI MAMMOGRAM DIAGNOSTIC POST PROCEDURE NO TOMOSYNTHESIS NO CAD (LEFT) (12/04/2024 2:23 PM EDT) Anatomical Region Laterality Modality Breast Left Left Mammography 12/04/2024 3:17 PM EDT Addenda Addendum by Krissy Lerma MD on 12/06/2024 3:39 PM EDT ADDENDUM: PATHOLOGY RESULTS Site A LEFT breast: 2:00, Mass, kimberly clip. PATHOLOGY: Fibroadenoma Radiologist comments: Benign pathologic diagnosis is concordant with imaging findings. Site B LEFT breast: 4:00, Mass, Heart shape clip. PATHOLOGY: Fibroadenoma Radiologist comments: Benign pathologic diagnosis is concordant with imaging findings. Recommendation: Annual screening mammography. The patient will be notified by the referring provider as per current protocol. Impressions 12/04/2024 3:19 PM EDT Ultrasound-guided core needle biopsy of the left breast, 2 areas - please see report content for details. An addendum to this report will be dictated when pathology results are available. Narrative 12/04/2024 3:19 PM EDT BI RESIDENTIAL BIOPSY OF BREAST (LEFT), BI MAMMOGRAM DIAGNOSTIC POST PROCEDURE NO TOMOSYNTHESIS NO CAD (LEFT) Additional patient information: Left breast mass, 2:00 and left breast mass, 4:00. COMPARISON: Comparison is made with relevant prior imaging. TECHNIQUE: The procedure was explained to the patient, including discussion of risks and benefits, and written informed consent was obtained. A preprocedural timeout was performed to confirm patient identity with multiple identifiers, as well as the side of the procedure to be performed. Ultrasound imaging was performed to localize the target. The procedure site was prepped using standard aseptic technique. Local anesthesia was administered and documented in the EMR. Under ultrasound guidance, core biopsy was performed of the target lesion. FINDINGS: SITE #1 Location: Left breast 2:00 Target: 6 mm mass Device: 14-gauge core biopsy needle Clip: Burns clip Post procedure mammogram: Biopsy clip in good position. Specimen: Multiple cores obtained. Submitted in formalin to pathology. SITE #2 Location: Left breast 4:00 Target: 15 mm mass Device: 14-gauge core biopsy needle Clip: A heart shape clip was placed at the procedure site. Post procedure mammogram: Biopsy clip in good position. Specimen: Multiple cores obtained. Submitted in formalin to pathology. The patient tolerated the procedure and there were no immediate complications. Procedure Note Krissy Lerma MD - 12/04/2024 BI RESIDENTIAL BIOPSY OF BREAST (LEFT), BI MAMMOGRAM DIAGNOSTIC POST PROCEDURE NOTOMOSYNTHESIS NO CAD (LEFT) Additional patient information: Left breast mass, 2:00 and left breastmass, 4:00. COMPARISON: Comparison is made with relevant prior imaging. TECHNIQUE: The procedure was explained to the patient, including discussion of risksand benefits, and written informed consent was obtained. A preproceduraltimeout was performed to confirm patient identity with multipleidentifiers, as well as the side of the procedure to be performed. Ultrasound imaging was performed to localize the target. The proceduresite was prepped using standard aseptic technique. Local anesthesia wasadministered and documented in the EMR. Under ultrasound guidance, corebiopsy was performed of the target lesion. FINDINGS: SITE #1 Location: Left breast 2:00 Target: 6 mm mass Device: 14-gauge core biopsy needle Clip: Kimberly clip Post procedure mammogram: Biopsy clip in good position. Specimen: Multiple cores obtained. Submitted in formalin to pathology. SITE #2 Location: Left breast 4:00 Target: 15 mm mass Device: 14-gauge core biopsy needle Clip: A heart shape clip was placed at the procedure site. Post procedure mammogram: Biopsy clip in good position. Specimen: Multiple cores obtained. Submitted in formalin to pathology. The patient tolerated the procedure and there were no immediatecomplications. IMPRESSION: Ultrasound-guided core needle biopsy of the left breast, 2 areas - pleasesee report content for details. An addendum to this report will be dictated when pathology results areavailable. Beau Panchal MD IMG MG EXAMS Edited Result - Final documented in this encounter Visit Diagnoses Diagnosis Mass of left breast, unspecified quadrant- Primary Mass of left breast, unspecified quadrant documented in this encounter Care Teams Slitter Scorer Relationship Specialty Start Date End Date Idalmis Melgar DO [address] [place] [phone] PCP - General Family Medicine 08/04/23 documented as of this encounter Additional Source Comments The information contained in this document represents components of the legal health record. It is not the complete legal health record.[facility]
--- OUTSIDE RECORDS SUMMARY | 2025-06-30 22:03 | XMS_ITS | Encounter Summary ---
Author Organization [facility] Address [address] [facility] [address] [place] [address] Phone Care Team Providers Care Tangled Yarn Spool Straightener Name Role Phone Johana Hidalgo Primary Care Prov ider Idalmis Melgar DO Primary Care Provider + [phone] Encounter Details Date Type Department Care Team (Late st Contact Info) Description 06/30/2023 Procedure Pass [facility], [facility] [address] [place] [address] Social History Tobacco Use Types Packs/Day Years [...] on filedocumented in this encounter Care Teams Tangled Yarn Spool Straightener Relationship Specialty Start Date End Date Johana Hidalgo PA [address] [place] [address] PCP - General Physician Forest Fire Officer 04/16/23 08/03/23 Idalmis Melgar DO [address] [place] [phone] [email or web address] PCP - General Family Medicine 08/04/23 documented as of this encounter Additional Source Comments The information contained in this document represents components of the legal health record. It is not the complete legal health record.[facility]
--- OUTSIDE RECORDS SUMMARY | 2025-06-30 22:03 | XMS_ITS | Encounter Summary ---
Author Organization [facility] Address [address] [facility] [address] [place] [address] Phone Care Team Providers Care Network Security Analyst Name Role Phone Idalmis Melgar Primary Care Provider [phone] Encounter Details Date Type Department Care Team (Late st Contact Info) Description 10/25/2024 Procedure Pass [facility], [address] [address] Social History Tobacco Use Types Packs/Day Years [...] on filedocumented in this encounter Care Teams Network Security Analyst Relationship Specialty Start Date End Date Idalmis Melgar DO [address] [place] [id number] PCP - General Family Medicine 08/04/23 documented as of this encounter Additional Source Comments The information contained in this document represents components of the legal health record. It is not the complete legal health record.[facility]
--- OUTSIDE RECORDS SUMMARY | 2025-06-30 22:04 | XMS_ITS | Encounter Summary ---
Author Organization [facility] Address [address] [place] [id number] Phone Care Team Providers Care [employer] Guid[employer] Counselor Name Role Phone Idalmis Melgar Primary Care Provider [phone] Encounter Details Date Type Department Care Team (Late st Contact Info) Description 08/04/2023 Procedure Pass [facility] Endoscopy Admitting Dept Virtual Department [address] [place] [address] Social History Tobacco Use Types Packs/Day Years [...] on filedocumented in this encounter Care Teams [employer] Guid[employer] Counselor Relationship Specialty Start Date End Date Idalmis Melgar DO [address] [place] [phone] [email or web address] PCP - General Family Medicine 08/04/23 documented as of this encounter Additional Source Comments The information contained in this document represents components of the legal health record. It is not the complete legal health record.[facility]
--- OUTSIDE RECORDS SUMMARY | 2025-06-30 22:04 | XMS_ITS | Clinical Summary ---
Author Organization [facility] Address [address] [address] Phone Care Team Providers Care Flarer Name Role Phone Idalmis Melgar Primary Care Provider [phone] Allergies Active Allergy Reactions Criticality Noted Date Comments Doxycycline 08/01/2015 Other reaction(s): swelling of tongue Tree Nuts Sneezing 01/16/2021 Medications fluticasone propionate (FLONASE) 50 mcg/actuation nasal spray USE 1 SPRAY IEN QD FOR 14 DAYS 9 Active loratadine (CLARITIN) 10 mg tablet Take 10 mg by mouth daily. Active albuterol 90 mcg/actuation inhaler Inhale 2 puffs into the lungs every 4 (four) hours as needed. 3 Active ALPRAZolam (XANAX) 0.5 MG tablet 3 Active tretinoin (RETIN-A) 0.05 % cream APPLY SPARINGLY TO SUN-DAMAGED SKIN ON FACE NIGHTLY TOLERATED 3 Active acetaminophen (TYLENOL) [address] 325 mg rectally every 4 (four) hours as needed for fever. Active buPROPion (WELLBUTRIN SR) 100 MG SR 12 hr tablet Take 100 mg by mouth every morning. 5 Active atorvastatin (LIPITOR) 10 MG tablet Take 1 tablet by mouth every morning. 5 Active escitalopram oxalate (LEXAPRO) 10 MG tablet Take 1 tablet by mouth every morning. 5 Active WEGOVY 1.7 mg/0.75 mL subcutaneous injection INJECT 1.7 MG UNDER THE SKIN ONCE WEEKLY 5 Active metroNIDAZOLE (METROCREAM) 0.75 % cream as needed. 5 Active Active Problems Problem Noted Date Diagnosed Date Morbid obesity with BMI of 40.0-44.9, adult 11/01 Resolved Problems Problem Noted Date Diagnosed Date Resolved Date IUD (intrauterine device) in place 11/28/2018 09/04/2019 Overview (11/28/2018): Mirena 09/2015 Immunizations Immunization Administration Dates Next Due COVID-19 (Pre-05/24) Pfizer Vaccine, mRNA, PF 05/28/2021 DTP 08/31/1995, 2,03/30/1991,12/27,1990 HPV, unspecified formulation 08/16/2008,10/20/19 08,07/18/2007 Hepatitis B, unspecified formulation 04/10/1996, 10/16/1995,08/31/1995 Hib,PRP-T 12/04/1991, 1,1990,10/26 INFLUENZA, SPLIT VIRUS, TRIV ALENT W/ PRESERVATIVE IM 08/02/2013,05/20/2010 Influenza Quadrivalent Prese rvative Free IM 05/15/2021,05/24/2019,04/14/2018,05/26,07/14/2016 MMR 04/10/1996,12/04/1991 Meningococcal MCV4P 02/20/2011 Polio - OPV 08/31/1995, 2,1990,10/26 Td (adult),2 Lf Tetanus Toxo id, PF, Adsorbed 05/15/2021 Td, unspecified formulation 07/31/2002 Tdap 03/20/2011 Family History Medical History Relation Comments Hypertension Father Cancer Maternal Grandfather colorectal cancer Rheumatoid arthritis Mother Ashkenazi Gnosticist ancestry Paternal Grandmother Relation Status Comments Father Alive Maternal Grandfather Mother Alive Paternal Grandmother Social History Tobacco Use Types Packs/Day Years Used Date Smoking Tobacco: Never Smokeless Tobacco: Never Tobacco Cessation:Counseling Given: Not Answered Alcohol Use Standard Drinks/Week Comments Yes 0 [...] on file Sexual Orientation Not on file Last Filed Vital Signs Vital Sign Reading Time Taken Comments Blood Pressure 122/76 01/24/2025 10:28 AM EDT Pulse 71 08/04/2023 9:13 AM EST Temperature 36.1 C (96.9 F) 08/04/2023 8:02 AM EST Respiratory Rate 19 08/04/2023 9:13 AM EST Oxygen Saturation 98% 08/04/2023 9:13 AM EST Inhaled Oxygen Concentration - - Weight 91.6 kg (202 lb) 01/24/2025 10:28 AM EDT Height 160 cm (5' 3 ) 01/24/2025 10:28 AM EDT Body Mass Index 35.78 01/24/2025 10:28 AM EDT Plan of Treatment Health Maintenance Due Date Last Done Comments DEPRESSION SCREENING 2002 HEPATITIS C SCREENING 2008 HIV ONE-TIME SCREENING (18-65 YEARS) 2008 INFLUENZA VACCINE (#1) 2025 , 04/19/2023, 05/07/2022, Additional history exists COVID-19 VACCINE ( season) 2025 06/02/2022, 05/28/2021, 09/27/2020, Additional history exists PAP SMEAR 01/16/2026 01/16/2021, 0304/2018, 10/08/2017, Additional history exists Adult Td,Tdap Booster 05/15/2031 05/15/2021 , 03/20/2011, 07/31/2002 HIB VACCINES Completed 12/04/1991, 03/03, 1990, Additional history exists MENINGOCOCCAL VACCINES (ACWY) Aged Out 02/20/2011 No longer eligible based on patient's age to complete this topic SMOKING STATUS SCREENING (Once After 26 Yrs) Completed 01/24/2025 HEPATITIS A VACCINES Aged Out No long er eligible based on patient's age to complete this topic MENINGOCOCCAL VACCINES (B) Aged Out N o longer eligible based on patient's age to complete this topic PNEUMOCOCCAL VACCINES (0-49 years) Aged Out No longer eligible based on patient's age to complete this topic Medical Devices Implanted Type Area Wood Car 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 Device Identifier Shelf Expiration Date Model / Serial / Lot Marker Ultraclip 17ga 10cm Tissue Dual Trigger Breast Ti Heart Shape Bx/5ea - [id number] Implanted:Qty: 1 on 12/04/2024 by Krissy Lerma MD at [facility] Left: Breast [employer] [id number] / / Description:Heart shape is f or lesion # 2 Marker Ultraclip 17ga 10cm Tissue Dual Trigger Breast Ti Warren Shape Bx/5ea - [id number] Implanted:Qty: 1 on 12/04/2024 by Krissy Lerma MD at [facility] Left: Breast [employer] [id number] / / Description:Kimberly marker for lesion #1 Procedures Procedure Name Priority Date/Time Associated Diagnosis Comments PAP TEST Routine 01/16/2021 12:00 AM EDT from Last 3 Months or Most Recently Relevant to Health Maintenance Results * Pap Smear (01/16/2021 12:00 AM EDT) 01/16/2021 01/17/2021 8:4 8 AM EDT Narrative SEE NARRATIVE - 01/22/2021 2:42 PM EDT [address] [address] Data Processing Supervisor: Yue Hernandez MD 7[employer] Cytology Report FINAL DIAGNOSIS A. PAP SMEAR (SUREPATH) CE: SPECIMEN ADEQUACY: Satisfactory for evaluation; transformation zone absent/insufficient. Limited by mucus/lubricant INTERPRETATION: NEGATIVE FOR INTRAEPITHELIAL LESION OR MALIGNANCY. Electronically Signed Out By: DERIC Nugent(ASCP) The Pap test is a screening test primarily for squamous cancers and precursors and has associated false-negative and false-positive results. New technologies such as liquid-based preparations may decrease but will not eliminate all false-negative results. Regular sampling and follow-up of unexplained clinical signs and symptoms are recommended to minimize false negative results. PROCEDURES/ADDENDA HPV Testing (Requested) Ordered Date: 01/17/2021 A. PAP SMEAR (SUREPATH) CE: Human Papilloma Virus Test Negative for high-risk human papillomavirus types 16, 18, 45 and the Other high risk probe set (Includes 31, 33, 35, 39, 51, 52, 56, 58, 59, 66, 68) by [employer] Onclarity HR-HPV analysis. Clinical correlation is advised. This HPV test was performed at [facility], [address] [place] [address]. This test has been FDA approved for [employer]Path cervical cytology specimens. The accuracy and precision of this test for all other specimen sources has been verified in the Cytopathology Laboratory of the [facility] and has not been cleared or approved by the U.S. Food and Drug Administration. Clinical correlation is advised. CLINICAL HISTORY Date of Last Menstrual Period: 12-26-2020 Other Clinical Conditions: Screening Pap SPECIMEN SOURCE A: PAP SMEAR (SUREPATH) CE Patient Name: DELLA ALCANTARA : 1990 (Age: 30) Sex: F Institution: [facility] Location: [facility] Date of Collection: 01/16/2021 Date of Reported: 01/22/2021 14:42 Results to: Kendal Pretty MD us Kendal Pretty MD CYTOLOGY ORDERABLES Final Res ult SEE NARRATIVE from Last 3 Months or Most Recently Relevant to Health Maintenance Insurance O O O O O O O O HMO Care Teams Flarer Relationship Specialty Start Date End Date Idalmis Melgar DO [address] [place] [phone] PCP - General Family Medicine 08/04/23 Additional Source Comments The information contained in this document represents components of the legal health record. It is not the complete legal health record.[facility]
[2025-06-30 22:34] VITALS: BP 123/83; PULSE 76; RESP 16; TEMP -17.7; TEMP 0; O2SAT 98
== END 2025-06-30 22:10 | disposition home or self-care (01) ==
PROVIDERS: Physician Assistant Medical; Emergency Provider Emergency Medicine; PCP Nurse Practitioner
DX: R07.89 Other chest pain (principal); M25.512 Pain in left shoulder; R06.02 Shortness of breath; R68.84 Jaw pain; R20.0 Anesthesia of skin; Z79.899 Other long term (current) drug therapy
CPT/HCPCS: 36415; 80053; 83735; 84484; 85025; 93005; 99283; 99284

== ENCOUNTER → 2025-06-30 17:22 | Outpatient (BNV) | payer OTHER, SELFPAY | PROVIDERS: Emergency Provider Emergency Medicine; PCP Nurse Practitioner; Visit Provider Internal Medicine | DX: R07.9 Chest pain, unspecified (principal) | CPT/HCPCS: 93010 ==